=== PATIENT | female | born 1990 | race Caucasian/White ===

== ENCOUNTER → 2018-09-22 16:25 | Outpatient (CLI) | payer OTHER, SELFPAY ==
[2017-12-29 11:28] VITALS: BMI 24.3
[2018-09-25 11:41] LABS: HPV Reflexed? NOT INDICATED
--- OUTSIDE RECORDS SUMMARY | 2018-11-24 22:33 | XMS RPT_ITS ---
:1990 Author Organization OHIP Care Team Providers Name Role Phone Miguelina Perry Attending Unavailable Thomas Wilkinson Attending Unavailable ASSESSMENT, HEALTH RISK Attending Unavailable ASSESSMENT, HEALTH RISK Referring Unavailable Oleghe, Efewongbe Primary Care Unavailable Oleghe Efewongbe Attending Unavailable Oleghe, Efewongbe Referring Unavailable Oleghe, Efewongbe Primary Care Unavailable PROBLEMS PROBLEMS DATE TYPE CONDITION / CODE ATTENDING STATUS SOURCE 09/22/2018 Unknown Z12.4 - Encounter Margot Perry for screening for [facility] malignant neoplasm [facility] of cervix / Repository Z12.4(ICD-10) 09/22/2018 Unknown Z01.419 - Encounter Margot Perry for gynecological [facility] (general) (routine) Repository without abnormal findings / Z01.419(ICD-10) PROCEDURES PROCEDURES No Procedure Records FoundRESULTS RESULTS PAP I-G W/RFX Collected: 09/22/2018 Status: F Source: ANTONIO HRHPV-APTIMA 3:00 PM [facility] REPOSITORY Order Comment: CYTOLOGY INFORMATION: - CLINICAL INFORMATION: - DATE LMP/MENOPAUSE: 09/02/18 LMP - COLLECTION VIAL: Thin Prep Vial - ANNEALER HELPER SOURCE: CERVICAL/ENDOCERVICAL - COLLECTION TECHNIQUE: BRUSH/SPATULA Specimen Comment: [id number] Specimen Comment: Source.............Cervix;Endocervix Specimen Comment: LMP / Prev Treat...[id number] Specimen Comment: No. of containers..01 ThinPrep Vial TYPE CODE TESTS RESULT OUT OF RANGE REFERENCE UNITS LAB L7400.0800 . Normal DIAGN Comment Result Comment: NEGATIVE FOR INTRAEPITHELIAL LESION OR MALIGNANCY. LAB L7400.0900 . Normal ADEQ Comment Result Comment: Satisfactory for evaluation. Endocervical and/or squamous metaplastic cells (endocervical component) are present. LAB L7400.1400 . Normal PERFORM Comment Result Comment: Maribell Medeiros, Enterprise Software Developer (ASCP) LAB L7400.2575 . Normal TEST METHOD Comment Result Comment: This liquid based ThinPrep(R) pap test was screened with the use of an image guided system. LAB L7400.2600 . Normal . COMM LAB L7400.2700 . Normal PAPSMR Comment Result Comment: The Pap smear is a screening test designed to aid in the detection of premalignant and malignant conditions of the uterine cervix. It is not a diagnostic procedure and should not be used as the sole means of detecting cervical cancer. Both false-positive and false-negative reports do occur. LAB L7400.2800 . Normal HPV RFLX Comment Result Comment: The HPV DNA reflex criteria were not met with this specimen result therefore, no HPV testing was performed. Performed at: [facility] [id number] Auxiliary Power Equipment Operator: Laila Ho MD, Phone: [phone] Performed By: #### L7400.0353 #### [facility] (refer to report for specific site) refer to report for address and phone number INTERNAL MEDICINE Observed: 12/30/2017 Status: F Source: ANTONIO OFFICE VISIT 3:19 PM [facility] [address] [place] [id number] OFFICE VISIT Date of Service: 12/29/17 MR#: [id number] Acct: [id number] Name: INOCENCIA ARMSTRONG Rep #: [id number] : 1990 Provider: Tish Valdes MD Age/Sex: 27/F Location: [facility] Status: Signed Intake Vital Signs12/29/17 Height 5 ft 8 in Intake Visit Reasons: EST CARE Chief Complaint: establish care Is patient in pain?: No Allergies No Known Allergies Allergy (Unverified 11/11/17 10:46) Medications norethindrone 1 mg-e. estradiol 20 mcg (24)-iron 75 mg (4) chew tablet PO 84 Days #84 11/11/17 [History Confirmed 11/11/17] Is last menstrual period known: Yes PFSH Medical History Seasonal allergies (Chronic) History of ovarian cyst (Acute) history of eyelid repair (Acute) Surgical History History of unilateral fallopian tube excision (Acute) Family History Sister Deafness Grandmother Thyroid disorder Diabetes Kidney disease Grandfather Brain aneurysm Social History Smoking Status: Never smoker alcohol intake: current alcohol intake frequency: a few times a month Alcohol type: beer substance use type: does not use what type of physical activity do you participate in: walking, weight training frequency: 5-6 times per week HPI HPI Chief Complaint: establish care Details: INOCENCIA ARMSTRONG, is a 27yo F who presents to the office today for an annual physical. She has no acute complaints at this time. ROS Const Constitutional: No weight change, body ache, chills, fatigue, sleep problems, fever(s), change in appetite, snoring, weakness, frequent falls, headache(s) or excessive sweating Eyes Eyes: No change in vision, eye pain, light sensitivity or blurry vision ENT ENT: No headache(s), abnormal hearing, ear pain, tinnitus, nasal congestion, sore throat or neck pain Resp Respiratory: No snoring, cough, shortness of breath or wheezing Cardio Cardiology: No excessive sweating, chest pain at rest, chest pain with exertion, shortness of breath, dyspnea on exertion, palpitations, orthopnea or lightheadedness Gastro GI: No abdominal pain, change in bowel habits, constipation, diarrhea, vomiting, nausea/dyspepsia or cramping Genitourinary-Female: No burning urination, painful urination, urinary incontinence, urinary frequency, abnormal vaginal bleeding, pelvic pain or other Musc Musculoskeletal: No neck pain, abnormal walking, joint pain, back pain, limited range of motion, numbness or tingling Skin Skin: No redness, dry skin, itching, lesions, wounds or rash Neuro Neurology: No weakness, frequent falls, headache(s), abnormal hearing, abnormal walking, numbness, tingling, abnormal speech, dizziness or memory loss Psych Psychiatric: No change in appetite, No memory loss, No depression, No Thoughts of harming yourself/Others Endo Endocrine: No fatigue, excessive sweating, cold intolerance, increased thirst/drinking, heat intolerance, flushing or increased hunger Aller/Imm Allergy/Immunologic: No wheezing, itchy eyes, hives or seasonal allergy symptoms Kory/Lymp Hematologic/Lymphatic: No easy bleeding, easy bruising or enlarged lymph nodes Exam Const General: cooperative, no acute distress, well developed Orientation: alert, awake, oriented x3 HENMT Head: normal to inspection, normocephalic, atraumatic Ears: hearing grossly normal bilaterally Neck Neck: normal visual inspection, no lymphadenopathy Neck mass: No Thyroid: thyroid normal Resp Effort AND Inspection: normal respiratory effort, able to speak in complete sentences Auscultation: Bilateral: Clear to Auscultation Cardio Rate: regular rate Rhythm: regular rhythm Heart Sounds: S1 normal, S2 normal GI Inspection: normal to inspection Palpation: soft, no hepatosplenomegaly Neuro General: awake, alert, oriented x3, CN's II-XI intact bilaterally Extrem General: no clubbing, cyanosis or edema, normal to inspection, full ROM Psych Appearance: grossly normal Mental Status: mental status grossly normal Mood: congruent mood Affect: normal affect Assessment AND Plan 1. Encounter for preventive care Z00.00 Plan Ms. Armstrong is doing well today. Vitals are within normal. Blood work also reviewed, no concerns at this time. Follows up with her environmental education specialist in [facility], last pap smear was within normal. Sleep hygiene discussed. Continue dietary and life style modifications. Follow up in 1 year or as needed. This note was generated with MyNewPlace dictation software. It may contain incorrect words, spelling, and punctuation that were not noted in checking the note before signing. Plan Detail Follow Up 1 Year (or as needed) Coding Level of Care Code Off vis,new,prev 18-39yrs Diagnoses Encounter for preventive care Z00.00 12/30/17 1519 <Electronically signed by Tish Valdes MD> Date Tish Valdes MD Cosigner Signature: Date (if applicable) CC: WILLARD, EMPLOYEE Collected: 12/26/2017 Status: F Source: ANTONIO 7:24 AM [facility] REPOSITORY TYPE CODE TESTS RESULT OUT OF RANGE REFERENCE UNITS LAB L100.1000 4.4-11.0 K/mm3 Normal WBC 4.4 LAB L100.1200 4.2-5.4 M/mm3 Normal RBC 4.48 LAB L100.1300 12.0-15.0 g/dl Normal HGB 13.8 LAB L100.1400 37-47 % Normal HCT 41.3 LAB L100.1500 81-99 fL Normal MCV 92.2 LAB L100.1600 27.0-32.0 pg Normal MCH 30.8 LAB L100.1700 32-36 g/gl Normal MCHC 33.4 LAB L100.1810 11.6-14.6 % Normal RDW CV 13.0 LAB L100.1820 35.1-43.9 fl Normal RDW SD 43.1 LAB L100.1900 150-450 K/mm3 Normal PLT 339 LAB L100.2000 6.2-12.0 fl Normal MPV 8.9 LAB L100.2110 47-70 % Low NEUT% 27.4 LAB L100.2210 19-41 % High LY% 55.2 LAB L100.2310 0-10 % High MONO% 11.3 LAB L100.2410 0-5 % High EO% 5.7 LAB L100.2510 0-1 % Normal BASO% 0.2 LAB L100.2620 2.0-7.7 X10 3/uL Low Absolute Neut 1.2 LAB L100.2720 0.83-4.51 X10 3/ul Normal Absolute Lymph 2.40 Performed By: #### L100.0200 #### [facility] [address] [place], [address] URINALYSIS, EMPLOYEE Collected: 12/26/2017 Status: F Source: ANTONIO 7:24 AM [facility] REPOSITORY TYPE CODE TESTS RESULT OUT OF RANGE REFERENCE UNITS LAB L400.3000 Yellow COLOR Normal Yellow LAB L400.3050 Clear Normal CLARITY Sl. Cloudy LAB L400.3200 Normal mg/dl Normal GLUCOSE, UR Normal LAB L400.3300 Negative mg/dL Normal BILIRUBIN URINE Negative LAB L400.3400 Negative mg/dl Normal KETONE UR Negative LAB L400.3465 1.002-1.030 Normal SP.GR. DIPSTX 1.025 LAB L400.3550 5.0 - 8.0 pH UR Normal 6.0 LAB L400.3600 Negative mg/dl High PROT 30 DIPSTX LAB L400.3700 Normal mg/dl Normal UROBILI Normal LAB L400.3750 Negative Normal NITRITE UR Negative LAB L400.3780 Negative /ul High 10 OCCULT BLOOD-UR LAB L400.3800 Negative /ul LEUK Normal ESTERASE Negative Performed By: #### L400.0100 #### [facility] [address] [place], [address] EMPLOYEE PROFILE Collected: 12/26/2017 Status: F Source: SHANDAKEN 7:24 AM [facility] REPOSITORY TYPE CODE TESTS RESULT OUT OF RANGE REFERENCE UNITS LAB L501.0100 74-106 mg/dL Normal GLU 78 Result Comment: Please note revised GLUCOSE reference range effective 2017. LAB L501.1000 7-18 mg/dL Normal BUN 14 LAB L501.1100 0.55-1.02 mg/dL Normal CREAT,SERUM 0.84 Result Comment: The validity of the calculated GFR AND GFRAA in patients over 70 years has not been determined. Clinical correlation is essential. LAB L501.1110 >60 mL/min Normal EST GFR 87 Result Comment: Non- GFR Calc LAB L501.1115 >60 mL/min Normal EST GFR - AA 106 Result Comment: GFR Calc LAB L501.1300 10-20 RATIO Normal BUN/CRE 16.6 LAB L501.1400 2.6-6.0 mg/dL Normal URIC 3.5 Result Comment: The drugs N-Acetylcysteine and Metamizole may falsely depress this assay. LAB L501.1500 6.4-8.2 g/dL Normal T PROT 7.9 LAB L501.1800 3.2-5.0 g/dL Normal ALB 3.8 LAB L501.1950 2.2-4.2 g/dL Normal GLOB 4.1 LAB L501.2000 0.9-2.4 RATIO Normal A/G 0.9 LAB L501.2200 8.5-10.1 mg/dL Normal CA 8.7 LAB L501.2300 2.5-4.9 mg/dL Normal PHOS 2.8 LAB L501.4100 15-37 U/L Normal AST 23 LAB L501.4305 45-117 U/L Normal ALK P 49 LAB L501.4405 13-56 U/L Normal ALT 22 LAB L501.4600 0.20-1.00 mg/dL Normal T BILI 0.90 LAB L501.4700 0.00-0.30 mg/dL Normal D BILI 0.21 LAB L501.4900 200 mg/dL Normal CHOL 157 Result Comment: <200 mg/dL Desirable 200-240 mg/dL Borderline >240 mg/dL High Risk LAB L501.5000 mg/dL Normal TRIG 63 Result Comment: The drugs N-Acetylcysteine and Metamizole may falsely depress this assay. Serum Triglycerides Reference Interval Normal <150 mg/dL Borderline high 150 - 199 mg/dL High 200 - 499 mg/dL Very High > or = 500 mg/dL LAB L501.5300 136-145 mmol/L Normal NA 141 LAB L501.5600 3.5-5.1 mmol/L Normal K 4.1 LAB L501.5900 98-107 mmol/L Normal CL 107 LAB L501.6100 21.0-32.0 mmol/L Normal CO2 25.0 LAB L501.6200 5-15 Normal 9 GAP LAB L501.6400 mg/dL Normal HDL 66 Result Comment: The drugs N-Acetylcysteine and Metamizole may falsely depress this assay. Reference Range HDL <40 mg/dL Low HDL Cholesterol HDL >or= 60 mg/dL High HDL Cholesterol LAB L501.6475 Normal CHOL:HDL 2.40 LAB L501.6500 0-130 mg/dL Normal LDL 78 LAB L501.6600 5-40 mg/dL Normal VLDL 13 LAB L504.2610 84-246 U/L Normal LDH 170 Performed By: #### L500.2900 #### [facility] [address] [place], [place], [address] NICOTINE URINE DRUG Collected: 12/26/2017 Status: F Source: ANTONIO SCREEN 7:24 AM [facility] REPOSITORY TYPE CODE TESTS RESULT OUT OF RANGE REFERENCE UNITS LAB L505.6250 TO BE Normal CONFIRMED Result Comment: CONFIRMATORY TESTING FOR ALL POSITIVE URINE DRUG SCREEN RESULTS WILL ONLY BE SENT OUT UPON PHYSICIAN ORDER. The results of Urine Drug Screen methods provide only preliminary analytical test results. A more specific alternate chemical method must be used in order to obtain a confirmed analytical result. Gas chromatography/mass spectrometery (GC/MS) is the preferred confirmatory method. Clinical consideration and professional judgement should be applied to any drug of abuse test result, particularly when preliminary positive results are used. LAB L505.6270 <200 ng/mL Normal COT DRG Negative SCREEN Result Comment: Cotinine is the first-stage metabolite of Nicotine. Performed By: #### L505.6240 #### [facility] [address] [place], [place], [address] URGENT CARE VISIT Observed: 11/11/2017 Status: F Source: SHANDAKEN REPORT 11:21 AM [facility] REPOSITORY [facility] [address] [place] [address] [address] [place], [place] [address] OFFICE VISIT Date of Service: 11/11/17 MR#: [id number] Acct: [id number] Name: INOCENCIA ARMSTRONG Rep #: [id number] : 1990 Provider: Thomas GARNER Age/Sex: 27/F Location: [facility] Status: Signed Intake Vital Signs11/11/17 Height 5 ft 9 in 11/11/17 Weight: 150 lb 11/11/17 Body Mass Index (BMI) 22.1 11/11/17 Blood Pressure 122/84 Intake Visit Reasons: SORE THROAT, FEVER Advertising Layout Worker Required: No Is patient in pain?: No Allergies No Known Allergies Allergy (Unverified 11/11/17 10:46) Medications norethindrone 1 mg-e. estradiol 20 mcg (24)-iron 75 mg (4) chew tablet PO 84 Days #84 11/11/17 [History Confirmed 11/11/17] [facility] Medical History History of ovarian cyst (Acute) history of eyelid repair (Acute) Surgical History History of unilateral fallopian tube excision (Acute) Social History Smoking Status: Never smoker alcohol intake: current alcohol intake frequency: a few times a month Alcohol type: beer HPI HPI Details: INOCENCIA ARMSTRONG, is a 27 F who presents to the office today for sore throat and body aches. Patient states that the sore throat started yesterday morning and then developed throughout the day and the body aches started this morning. She does report using Tylenol for the body aches with moderate relief. She has no known ill contacts. She denies fever, chills, sweats. No nausea, vomiting, diarrhea. No other associated symptoms or alleviating/aggravating factors ROS Const Constitutional: Positive for fever(s), body ache, chills and fatigue ENT ENT: Positive for nasal congestion and sore throat; no ear pain or nasal discharge Resp Respiratory: No shortness of breath, hemoptysis, pain with cough or cough Cardio Cardiology: No chest pain at rest or shortness of breath Musc Musculoskeletal: No abnormal walking Neuro Neurology: No abnormal walking or behavioral changes Psych Psychiatric: No behavioral changes, No mood swings Endo Endocrine: Positive for fatigue Exam Const General: cooperative, no acute distress HENMT Head: normocephalic, atraumatic Ears: hearing grossly normal bilaterally, TM's normal bilaterally, EAC's normal Nose: external nose normal Face and sinus: normal facial exam Mouth: oral mucosae normal Throat: posterior oropharynx abnormal erythema; Negative for no exudates Resp Effort AND Inspection: normal respiratory effort, symmetric chest movement Auscultation: Bilateral: Clear to Auscultation Cardio Palpation: normal PMI Rate: regular rate Rhythm: regular rhythm Heart Sounds: S1 normal, S2 normal Neuro General: alert, oriented x3, CN's II-XI intact bilaterally Psych Appearance: grossly normal Mental Status: mental status grossly normal Mood: congruent mood Assessment AND Plan Problems 1. Acute pharyngitis, unspecified etiology J02.9 Status Acute Plan Negative rapid strep and flu in the office today. Strep swab will be sent off for culture. Encouraged to get plenty of rest, drink lots of clear liquids, and use Tylenol or Ibuprofen (unless contraindicated) for fever and comfort. Patient also educated on other symptomatic management techniques. To be seen in 7-10 days if no improvement; sooner if worsening of symptoms. Patient advised of potential red flags when appropriate report to the ED. Patient verbalized understanding of all the above. This note was generated with ioBridgeation software. It may contain incorrect words, spelling, and punctuation that were not noted in checking the note before signing. Coding Level of Care Code Off vis,new,level 3 Diagnoses Acute pharyngitis, unspecified etiology J02.9 Pharyngitis/tonsillitis etiology: unspecified etiology 11/11/17 1121 <Electronically signed by Thomas GARNER> Date Thomas GARNER Cosigner Signature: Date (if applicable) CC: ALLERGIES ALLERGIES DATE TYPE / CODE NAME / CODE REACTION SEVERITY SOURCE 11/11/2017 Drug No Known Unknown [facility] Allergy/4160 Allergies/F00 [facility] [address](SNOMED [id number](RXNOR Repository CT) M) ENCOUNTERS ENCOUNTERS ADMIT/DISCHARGE ACCOUNT ADMITTING ENCOUNTER LOCATION SOURCE NUMBER CLASS 09/22/2018 [id number] Ambulatory [place] [facility] ing:[facility] Repository 12/29/2017/ [id number] Ambulatory BMSBuilding:B [place] [address] [facility] Repository 12/26/2017 [id number] Ambulatory [place] 3 [facility] ing:EMPH Repository 11/11/2017/ [id number] Ambulatory BMSBuilding:B [place] 8 8 [facility] Repository PAYERS PAYERS ENCOUNTER GUARANTOR PAYER SUBSCRIBER SOURCE 09/22/2018 INOCENCIA Primary Insurance:[facility] INOCENCIA COLVINOB: [place] [id number] [facility] [id number] [address]Yqo: (440) Number: Repository [phone] () [id number] Date:[id number] [address] [address], [place] [address]QE: CHECK WEBSITE 09/22/2018 Secondary NOT GIVENUNK [place] Insurance:SELF PAY [facility] Number: Effective Repository Date:2018-09-22 12/29/2017 INOCENCIA Primary TOYA COLVINOB: [place] [id number] SR Insurance:MEDICAL [id number] [address] [address]Yfa: Number: Repository [phone] [id number] (HP) Date:[id number] [address] [place] [id number]: 12/29/2017 Secondary NOT GIVENUNK [place] Insurance:SELF PAY [facility] Number: Effective Repository Date:2017-12-22 12/26/2017 INOCENCIA Primary NOT GIVENUNK Antonioannalisa [id number] SR Insurance:SELF PAY [address] [address]Yuo: Number: Effective Repository [phone] Date:2017-12-26 () 11/11/2017 INOCENCIA Primary TOAY COLVINOB: [place] [id number] SR Insurance:MEDICAL [id number] [address] [address]Ysq: Number: Repository [phone] [id number] () Date:[id number] [address] [place] [id number]: 11/11/2017 Secondary NOT GIVENUNK [place] Insurance:SELF PAY [facility] Number: Effective Repository Date:2017-11-11
== END ==
PROVIDERS: Visit Provider Obstetrics & Gynecology
DX: Z12.4 Encounter for screening for malignant neoplasm of cervix (principal)
CPT/HCPCS: 87624; 88175; G0145

== ENCOUNTER → 2020-02-11 | Outpatient (CLI) | payer OTHER, SELFPAY ==
[2019-04-05 09:47] VITALS: BMI 24.3
[2020-02-11 11:04] LABS: Mucous, Urine 0 SEEN /hpf (<or=2+); Red Blood Cells-Urine 0 SEEN /hpf (0-5)
[2020-02-11 13:59] LABS: Color, Urine Yellow (Yellow); Glucose, Dipstick Normal (Normal); Ketone-Dipstick Negative (Negative); Leukocyte Esterase-Dipstick 100 /ul (Negative); Nitrite-Dipstick Negative (Negative); Occult Blood-Urine Negative /ul (Negative); Protein-Dipstick Negative (Negative); Specific Gravity, Urine 1.015 (1.002-1.030); Urine Bilirubin Dipstick Negative (Negative); Urine Clarity Clear (Clear); Urine Urobilinogen Normal (Normal)
[2020-02-11 14:18] LABS: Bacteria 2+ /hpf (None Seen); Squamous Epithelial Cells - UA 0-5 SEEN /hpf (5-10); White Blood Cells 5-10 SEEN /hpf (0-5)
== END | disposition home or self-care (01) ==
PROVIDERS: PCP Internal Medicine; Visit Provider Obstetrics & Gynecology
DX: N39.0 Urinary tract infection, site not specified (principal)
CPT/HCPCS: 81001; 87077; 87086; 87088; 87186

== ENCOUNTER 2020-05-17 17:23 | Outpatient (RCR) | payer OTHER, SELFPAY ==
[2020-03-27 11:32] VITALS: BMI 24.3
== END 2020-05-31 23:59 ==
LOC: EMPH 17:23
PROVIDERS: PCP Internal Medicine; Visit Provider Family Medicine Geriatric Medicine
DX: Z11.59 Encounter for screening for other viral diseases (principal)
CPT/HCPCS: 87635; U0003

== ENCOUNTER → 2020-06-07 | Outpatient (CLI) | payer OTHER, SELFPAY ==
[2020-06-07 07:09] VITALS: BMI 24.3
[2020-06-07 10:14] LABS: Mucous, Urine 0 SEEN /hpf (<or=2+)
[2020-06-07 10:22] LABS: Color, Urine Yellow (Yellow); Glucose, Dipstick Normal (Normal); Ketone-Dipstick Negative (Negative); Leukocyte Esterase-Dipstick 500 /ul (Negative); Nitrite-Dipstick Negative (Negative); Occult Blood-Urine 150 /ul (Negative); Protein-Dipstick 30 mg/dl (Negative); Urine Bilirubin Dipstick Negative (Negative); Urine Clarity Cloudy (Clear); Urine Urobilinogen Normal (Normal)
[2020-06-07 10:30] LABS: Bacteria RARE /hpf (None Seen); Red Blood Cells-Urine 5-10 SEEN /hpf (0-5); Squamous Epithelial Cells - UA 0-5 SEEN /hpf (5-10); White Blood Cells 25-50 SEEN /hpf (0-5)
== END | disposition home or self-care (01) ==
LOC: LABSPEC 10:09
PROVIDERS: PCP Internal Medicine; Referring Provider Physician Assistant; Visit Provider Physician Assistant
DX: R35.0 Frequency of micturition (principal); R30.0 Dysuria
CPT/HCPCS: 81001; 87086

== ENCOUNTER → 2020-06-28 08:27 | Outpatient (CLI) | payer OTHER, SELFPAY ==
[2020-06-07 07:09] VITALS: BMI 24.3
[2020-06-28 10:26] LABS: Absolute Lymphocyte Count 2.15 X10^3/uL (0.83-4.51); Basophil# 0.02 X10^3/uL; Basophil% 0.4 % (0-1); Eosinophil# 0.21 X10^3/uL; Eosinophils% 4.2 % (0-5); Hematocrit 41.7 % (37-47); Hemoglobin 13.1 g/dL (12.0-15.0); Lymphocyte # 2.15 X10^3/ul (4.0); Lymphocyte % 42.7 % (19-41); Mean Corp Hgb Conc 31.4 g/dL (32-36); Mean Corpuscular Hgb 27.8 pg (27.0-32.0); Mean Corpuscular Volume 88.5 fL (81-99); Monocyte# 0.64 X10^3/uL; Monocyte% 12.7 % (0-10); NRBC Flagged by Analyzer 0 % (0-5); Neutrophil # 2.01 X10^3/uL (2.7-7.7); Platelet Count 346 K/mm3 (150-450); RBC Distribution Width SD 52.7 fl (35.1-43.9); Red Blood Count 4.71 M/mm3 (4.2-5.4)
== END ==
PROVIDERS: PCP Internal Medicine; Referring Provider Internal Medicine; Visit Provider Internal Medicine
DX: D64.9 Anemia, unspecified (principal)
CPT/HCPCS: 36415; 85025

== ENCOUNTER → 2021-03-26 14:17 | Outpatient (CLI) | payer OTHER, SELFPAY ==
[2021-03-26 13:56] VITALS: BMI 26.7
[2021-03-26 15:40] LABS: T4 Free Direct 0.99 ng/dL (0.76-1.46); Thyroid Stim Hormone (TSH) 0.88 uIU/mL (0.358-3.74)
== END ==
PROVIDERS: PCP Internal Medicine; Referring Provider Internal Medicine; Visit Provider Internal Medicine
DX: E66.3 Overweight (principal)
CPT/HCPCS: 36415; 84439; 84443

== ENCOUNTER → 2022-04-08 | Outpatient (CLI) | payer OTHER, SELFPAY ==
[2022-04-11 16:27] LABS: HPV Reflexed? NOT INDICATED
== END | disposition home or self-care (01) ==
LOC: LABSPEC 16:46
PROVIDERS: PCP Internal Medicine; Visit Provider Nurse Practitioner Women's Health
DX: Z12.4 Encounter for screening for malignant neoplasm of cervix (principal)
CPT/HCPCS: 88175; G0145

== ENCOUNTER → 2022-07-18 | Outpatient (CLI) | payer OTHER, SELFPAY ==
[2022-07-18 13:30] LABS: Amphetamine Urine VISTA NEGATIVE (<1000 ng/mL); Barbiturate Urine VISTA NEGATIVE (< 200 ng/mL); Benzodiazepine Urine VISTA NEGATIVE (< 200 ng/mL); Cocaine Urine VISTA NEGATIVE (< 300 ng/mL); Ecstacy Urine VISTA NEGATIVE (< 500 ng/mL); Methadone Urine VISTA NEGATIVE (< 300 ng/mL); PCP Urine VISTA NEGATIVE (< 25 ng/mL); THC Urine VISTA NEGATIVE (< 50 ng/mL); Vista UDS pH Range 7
[2022-07-22 22:06] LABS: Chlamydia By Nucleic Acid AMP Negative (Negative)
[2022-07-23 12:41] LABS: Gonococcus By Nucleic Acid AMP Negative (Negative)
== END | disposition home or self-care (01) ==
PROVIDERS: PCP Internal Medicine; Visit Provider Obstetrics & Gynecology
DX: O09.90 Supervision of high risk pregnancy, unspecified, unspecified trimester (principal)
CPT/HCPCS: 80307; 87086; 87088; 87491; 87591

== ENCOUNTER → 2022-07-31 | Outpatient (CLI) | payer OTHER, SELFPAY ==
[2022-07-31 08:00] LABS: Absolute Neutrophil Count 2.7 X10^3/uL (2.0-7.7); Basophil# 0.01 X10^3/uL; Basophil% 0.2 % (0-1); Eosinophil# 0.21 X10^3/uL; Eosinophils% 3.6 % (0-5); Hematocrit 41.2 % (37-47); Hemoglobin 14.1 g/dL (12.0-15.0); Lymphocyte % 41.4 % (19-41); Mean Corp Hgb Conc 34.2 g/dL (32-36); Mean Corpuscular Hgb 31.7 pg (27.0-32.0); Mean Corpuscular Volume 92.6 fL (81-99); Mean Platelet Vol. 8.5 fl (6.2-12.0); Monocyte# 0.48 X10^3/uL; Monocyte% 8.3 % (0-10); NRBC Flagged by Analyzer 0 % (0-5); Neutrophil # 2.68 X10^3/uL (2.7-7.7); Neutrophil % 46.2 % (47-70); Platelet Count 306 K/mm3 (150-450); RBC Distribution Width CV 12.6 % (11.6-14.6); RBC Distribution Width SD 42.9 fl (35.1-43.9); Red Blood Count 4.45 M/mm3 (4.2-5.4); White Blood Count 5.8 K/mm3 (4.4-11.0)
[2022-07-31 08:44] LABS: NATERA MAILED SPECIMEN
[2022-07-31 09:24] LABS: HIV - WCH Non-Reactive (Nonreactive); Hepatitis B Surface Antigen Non-Reactive (Nonreactive); Hepatitis C Antibody Non-Reactive (Nonreactive); Rubella IgG Reactive (Nonreactive); Syphilis Antibodies Non-reactive
== END | disposition home or self-care (01) ==
LOC: LAB 07:38
PROVIDERS: PCP Internal Medicine; Visit Provider Obstetrics & Gynecology
DX: O09.90 Supervision of high risk pregnancy, unspecified, unspecified trimester (principal)
CPT/HCPCS: 36415; 85025; 86703; 86762; 86780; 86803; 86850; 86900; 86901; 87340

== ENCOUNTER → 2022-09-03 | Outpatient (CLI) | payer OTHER, SELFPAY | END | disposition home or self-care (01) | LOC: LABSPEC 17:04 | PROVIDERS: PCP Internal Medicine; Referring Provider Obstetrics & Gynecology; Visit Provider Obstetrics & Gynecology | DX: R30.0 Dysuria (principal) | CPT/HCPCS: 87086; 87088 ==

== ENCOUNTER → 2022-09-25 | Outpatient (CLI) | payer OTHER, SELFPAY ==
--- NOTE | 2022-09-25 08:01 | US_ITS ---
STUDY: SECOND AND THIRD TRIMESTER OBSTETRICAL ULTRASOUND REASON FOR EXAM: Female, 32 years old anatomy LMP: 05/15/2022 TECHNIQUE: Transabdominal and Transvaginal TECHNICAL QUALITY: Adequate. PRIOR ULTRASOUND: None. FINDINGS: There is a single intrauterine fetus. The fetus is in a variable presentation. There is demonstrated cardiac activity with a heart rate of 137 bpm. There is a normal amniotic fluid volume. The largest amniotic fluid pocket measures 7.2 cm x 3.7 cm. The amniotic fluid index (VERONICA) is within normal limits. The placenta is anterior in location and is not low lying. There are Grade 0 placental changes. The cervix measures 4.7 cm in length. The bilateral adnexal regions are normal. BIOMETRY: BPD: 4.5 cm: 19 weeks, 4 days HC: 17.42 cm: 20 weeks, 0 days AC: 15.52 cm: 20 weeks, 5 days FL: 3 cm: 19 weeks, 2 days CI: 75% FL/BPD: 67% FL/HC: FL/AC: 19% HC/AC: 1.12 age by current US: 19 weeks, 5 days. NATE by current US: 02/14/2023. Estimated weight: 327 grams, +/- 49 grams, 93 %. Age by LMP: 19 weeks, 0 days. NATE by LMP: 02/19/2023. ANATOMY: Gender: Male Cranium: Normal lateral ventricles. Normal choroid plexus. Normal cerebellum. Normal cisterna magna. Normal face, nose and lips. Chest: Normal 4-chamber heart. Abdomen/Pelvis: Normal diaphragm. Normal stomach. Normal abdominal wall. Normal cord insertion. Normal 3 vessel cord. Normal kidneys. Normal bladder. Spine: Normal cervical spine. Normal thoracic spine. Normal lumbar spine. Normal sacrum. Extremities: Normal bilateral upper extremities. Normal bilateral lower extremities. IMPRESSION: Single live intrauterine gestation with a mean gestational age of 19 weeks and 5 days. Electronically Signed: Bebeto Allen MD at 12:15 EST , STUDY: FIRST TRIMESTER OBSTETRICAL ULTRASOUND REASON FOR EXAM: Female, 32 years old. Cervical length measurement. LMP: 05/15/2022 TECHNIQUE: Transvaginal TECHNICAL QUALITY: Adequate. PRIOR ULTRASOUND: None. FINDINGS: Cervical length measures 4.7 cm. US/OB Anatomy Scan IMPRESSION: The cervical length measures 4.7 cm. Electronically Signed: Bebeto Allen MD at 12:16 EST ,
== END | disposition home or self-care (01) ==
LOC: OPUS 08:00
PROVIDERS: PCP Internal Medicine; Visit Provider Obstetrics & Gynecology
DX: O09.90 Supervision of high risk pregnancy, unspecified, unspecified trimester (principal); Z3A.19 19 weeks gestation of pregnancy
CPT/HCPCS: 76805; 76817

== ENCOUNTER → 2022-11-14 | Outpatient (CLI) | payer OTHER, SELFPAY ==
[2022-11-14 09:32] LABS: Absolute Lymphocyte Count 1.97 X10^3/uL (0.83-4.51); Absolute Neutrophil Count 4.5 X10^3/uL (2.0-7.7); Basophil# 0.02 X10^3/uL; Basophil% 0.3 % (0-1); Eosinophil# 0.09 X10^3/uL; Eosinophils% 1.3 % (0-5); Hematocrit 38.1 % (37-47); Hemoglobin 12.5 g/dL (12.0-15.0); Lymphocyte # 1.97 X10^3/ul (0.83-4.51); Lymphocyte % 27.8 % (19-41); Mean Corp Hgb Conc 32.8 g/dL (32-36); Mean Corpuscular Hgb 32.1 pg (27.0-32.0); Mean Corpuscular Volume 97.9 fL (81-99); Mean Platelet Vol. 9.2 fl (6.2-12.0); Monocyte# 0.52 X10^3/uL; Monocyte% 7.3 % (0-10); NRBC Flagged by Analyzer 0 % (0-5); Neutrophil # 4.46 X10^3/uL (2.7-7.7); Neutrophil % 62.9 % (47-70); Platelet Count 257 K/mm3 (150-450); RBC Distribution Width CV 13.2 % (11.6-14.6); RBC Distribution Width SD 47.4 fl (35.1-43.9); Red Blood Count 3.89 M/mm3 (4.2-5.4); White Blood Count 7.1 K/mm3 (4.4-11.0)
[2022-11-14 09:52] LABS: Glucose Challenge Gest 1H 50g 88 mg/dL (70-140)
[2022-11-14 10:24] LABS: HIV - WCH Non-Reactive (Nonreactive); Syphilis Antibodies Non-reactive
== END | disposition home or self-care (01) ==
LOC: LAB 08:35
PROVIDERS: PCP Internal Medicine; Referring Provider Registered Nurse; Visit Provider Registered Nurse
DX: O09.90 Supervision of high risk pregnancy, unspecified, unspecified trimester (principal); Z3A.16 16 weeks gestation of pregnancy
CPT/HCPCS: 36415; 82950; 85025; 86703; 86780

== ENCOUNTER → 2023-01-28 | Outpatient (CLI) | payer OTHER, SELFPAY | END | disposition home or self-care (01) | LOC: LABSPEC 10:15 | PROVIDERS: PCP Internal Medicine; Referring Provider Obstetrics & Gynecology; Visit Provider Obstetrics & Gynecology | DX: O09.90 Supervision of high risk pregnancy, unspecified, unspecified trimester (principal) | CPT/HCPCS: 87081 ==

== ENCOUNTER 2023-02-14 10:20 | Inpatient (IN) | payer OTHER, SELFPAY ==
[2023-02-14] VITALS (47 sets, daily range): BP systolic 103–150; BP diastolic 58–85; PULSE 64–164; RESP 16–18; TEMP 35.6–36.7; O2SAT 80–100; BMI 33.9
[2023-02-14 02:09] LABS: ROM Internal Control Test YES-OK TO RESULT pt. (Internal QC); ROM Patient Test Negative (Negative); Record Kit Lot#, ROM+ K1374
--- NOTE | 2023-02-14 07:43 | OB.TRI.NOTE ---
HPI - General HPI Narrative INOCENCIA CORRIGAN, is a 32 y/o @ 39 weeks 2 days who presents to L&D at around 2 am today after having intercourse and experiencing fluid loss and contractions. ROM plus was negative and contractions were found to be irregular. Her cervix was unchanged for several hours but patient was hesitant to go home. Maternal Data Information NATE Calculator Estimated Delivery Date Method Current WG Current Estimate 02/19/23 LMP (Certain) 39w 2d Other Estimates 02/14/23 Ultrasound #1 40w 0d PFSH PFS Medical History history of eyelid repair History of ovarian cyst Seasonal allergies Home Medications prenat.vits,bhavesh,okk-spwi-netav 1 tab PO DAILY Check with primary doctor 03/27/20 [History Last Taken Unknown] docusate sodium 100 mg capsule (Colace) 100 mg PO DAILY Check with primary doctor 08/14/22 [History Last Taken Unknown] famotidine 20 mg tablet (Pepcid) 20 mg PO DAILY Check with primary doctor 10/09/22 [History Last Taken Unknown] metoclopramide HCl 5 mg tablet (Reglan) 5 mg PO QAC PRN nausea and vomiting #30 tabs 02/05/23 [Rx Last Taken Unknown] Allergy/AdvReac Type Severity Reaction Status Date / Time No Known Allergies Allergy Verified 02/14/23 02:06 Family History Sister Deafness Cleft lip and cleft palate Grandmother Thyroid disorder Diabetes Kidney disease Brain aneurysm Father Advanced cirrhosis of liver Surgical History History of unilateral fallopian tube excision Social History adopted: No household members: spouse housing: house current occupational status: employed 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 current occupational exposures/hazards: No pets and animals: Yes pets and animals: dog(s) history of recent travel: Yes ([place]) out of state: Yes out of country: No sexually active: Yes Smoking Status: Never smoker alcohol intake: former details: socially prior to substance use type: does not use well-balanced diet: daily or most days caffeine: No eating out: 1-3 times/week during the past year weight has: remained stable what type of physical activity do you participate in: walking and running frequency: daily duration: 30-45 minutes/day tramaine/lutheran: Religious seatbelt use: always do you feel safe at home: Yes additional 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: - 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 [employer] History 1 Elective abortions Hx Para 0 Spontaneous abortions Hx # Term Pregnancies Ectopic pregnancies Hx # Pregnancies Multiple births # of living children Visit Details Expected Delivery Route/Plan Labor Preferences- CB/BF classes: Just breathe labor support person: Jere labor intervention preferences: [] pain management options preferred: limited but not opposed to epidural cut cord/dad catch: cord : yes PP control planned: discussed discussed possible routes of delivery and associated risks: [] special requests: [] Plans Covid status: vaccinated Flu vaccine: vaccinated Tdap vaccine: given Rhogam: NA LARC form signed: yes movement and labor precautions reviewed. Problem list reviewed and updated with the most current plan of care details and appropriate orders placed. Relevant counseling for the gestational age provided. Continue routine care and follow up unless otherwise noted in visit notes/problem list details OB Flowsheet Initial Weight: Not Recorded Date <del>?</del> EGA Weight BP Urine Prot <del>?</del> Glucose FHR FuHt Pres Dilation <del>?</del> Effaced St Visit Note 07/18/22 <del>?</del> 9w 1d 191 lb 135/89 <del>?</del> 169 <del>?</del> JV-single live IUP present measuring 9 weeks 5 days. within appropriate measurement that is consistent with LMP. NATE 02/19/22. 08/14/22 <del>?</del> 13w 0d 194 lb 4 oz 127/89 Negative <del>?</del> Negative 150 <del>?</del> JV- normal carrier screen. no complaints other than indigestion and a cold. sister has VACTERL/VATER . will need to let MFM know at anatomy scan so can be offered Echo. 09/03/22 <del>?</del> 15w 6d 199 lb 2 oz 130/80 Negative <del>?</del> Negative <del>?</del> SM- no vb lof good fm no regular ctx here for uti symptoms 09/09/22 <del>?</del> 16w 5d 199 lb 4 oz 137/85 Negative <del>?</del> Negative 153 <del>?</del> LC- doing well. no vb/cramping. discussed and declines afp. has MFM anatomy scheduled. 10/09/22 <del>?</del> 21w 0d 202 lb 135/92 Negative <del>?</del> Negative 150 20 <del>?</del> LC- doing well. bleeding mole- derm consult ordered. mfm consult for sister with VATPATRICK. LC- doing well. bleeding mole- derm consult ordered. mfm consult for sister with VATERS, EFW 93% on anatomy. 11/05/22 <del>?</del> 24w 6d 209 lb 111/73 Negative <del>?</del> Negative 150 <del>?</del> JV- no lof, vaginal bleeding, or dec fm. Pt has a echo scheduled. gct ordered 11/26/22 <del>?</del> 27w 6d 210 lb 8 oz 110/72 Negative <del>?</del> Negative 137 26 <del>?</del> MH-No VB, LOF. Good FM. Larc. 12/10/22 <del>?</del> 29w 6d 213 lb 2 oz 113/76 Negative <del>?</del> Negative 135 31 <del>?</del> SM- no vb lof good fm no regular ctx 12/24/22 <del>?</del> 31w 6d 216 lb 4 oz 111/77 Negative <del>?</del> Negative 135 33 <del>?</del> KW- no lof/vb/ctx. +FM. no concerns. doing just breathe class tomorrow. 01/08/23 <del>?</del> 34w 0d 219 lb 2 oz 140/85 118/84 <del>?</del> 140 34 <del>?</del> LC- no lof/vb/ctx. good fm. plan reviewed. 01/21/23 <del>?</del> 35w 6d 223 lb 2 oz 122/68 Negative <del>?</del> Negative 145 36 <del>?</del> SM- no vb lof good fm no regualr ctx 01/28/23 <del>?</del> 36w 6d 225 lb 4 oz 123/78 <del>?</del> 140 37 Cephalic 2.5 <del>?</del> 70 -2 SM- no vb lof good f no regular ctx 02/05/23 <del>?</del> 38w 0d 228 lb 4 oz 133/87 Negative <del>?</del> Negative 145 38 Cephalic 3.5 <del>?</del> 70 -2 JV- no lof, vaginal bleeding, or dec fm. labor precautions discussed. 02/12/23 <del>?</del> 39w 0d 232 lb 121/81 <del>?</del> 140 39 Cephalic 4.5 <del>?</del> 90 -1 JV- no lof ,vaginal bleeding, or dec fm. labor precautions discussed. ROS Constitutional Constitutional: Reports systems reviewed and no addt'l complaints, except as documented Gastrointestinal Gastrointestinal: Denies bloating, constipation, cramping, diarrhea, nausea or vomiting Genitourinary Genitourinary: Reports other Details: Denies vaginal odor, vaginal bleeding, or vaginal discharge ; Denies difficulty urinating or flank pain Physical Exam HEENT normocephalic Resp normal respiratory effort and normal air movement no CVA tenderness Extremity normal to inspection General Extremity: edema bilateral (trace ) NST FHR Rate Baby A Baseline: 140 Variability:: Moderate Accelerations:: 15 x 15 Decelerations:: None NST Reactive:: Yes FHR Category:: Category I Assessment & Plan (1) False labor after 37 completed weeks of gestation: (2) Anxiety: COMMENT: sees therapist/stable (3) Abnormal ultrasound: COMMENT: Normal follow up US of rectum and normal echo. previously seen on anatomy scan. (4) Family history of VATER complex: COMMENT: MFM Normal 24 week echo. sister with VACTERL/VATER (5) Supervision of high risk , antepartum: COMMENT: PRR , NATE 02/19/22, boy Jere (6) : QUALIFIERS: Weeks of gestation: 39 weeks Qualified Code(s): Z3A.39 - 39 weeks gestation of COMMENT: GBS neg, NIPT low risk, carrier testing neg. , nl anatomy Dilated rectum- nl on repeat Charges/Coding Multi Select Codes Visit Charges Office Visit/Consults: 91767 OV L3 Est Urinary/Genital Urinary/Genital CPT Codes: 46977-31 non-stress test Interp
[2023-02-14] MEDS: Lactated Ringers 1,000 ML 200 ML IV (10:45)
[2023-02-14 10:58] LABS: Absolute Lymphocyte Count 2.05 X10^3/uL (0.83-4.51); Absolute Neutrophil Count 6.2 X10^3/uL (2.0-7.7); Basophil# 0.02 X10^3/uL; Basophil% 0.2 % (0-1); Eosinophil# 0.04 X10^3/uL; Eosinophils% 0.4 % (0-5); Hematocrit 39.8 % (37-47); Hemoglobin 12.9 g/dL (12.0-15.0); Lymphocyte # 2.05 X10^3/ul (0.83-4.51); Lymphocyte % 22.7 % (19-41); Mean Corp Hgb Conc 32.4 g/dL (32-36); Mean Corpuscular Hgb 31.1 pg (27.0-32.0); Mean Corpuscular Volume 95.9 fL (81-99); Mean Platelet Vol. 9.6 fl (6.2-12.0); Monocyte# 0.67 X10^3/uL; Monocyte% 7.4 % (0-10); NRBC Flagged by Analyzer 0 % (0-5); Neutrophil # 6.22 X10^3/uL (2.7-7.7); Neutrophil % 68.9 % (47-70); Platelet Count 287 K/mm3 (150-450); RBC Distribution Width SD 45.2 fl (35.1-43.9); Red Blood Count 4.15 M/mm3 (4.2-5.4)
[2023-02-14] MEDS: LACTATED RINGERS 500 ML 999 ML IV (11:16)
[2023-02-14 11:43] LABS: Syphilis Antibodies Non-reactive
--- NOTE | 2023-02-14 12:18 | PCM.HP.OB ---
HPI - General General Date of Admission: 02/14/23 HPI Narrative INOCENCIA CORRIGAN, is a 32 y/o @ 39 weeks 2 day who presents to L&D in early labor then staulled out at /1 station. She is being admitted for augmentation and living far from the hosptial. Maternal Data Information NATE Calculator Estimated Delivery Date Method Current WG Current Estimate 02/19/23 LMP (Certain) 39w 2d Other Estimates 02/14/23 Ultrasound #1 40w 0d [facility] Medical History history of eyelid repair History of ovarian cyst Seasonal allergies Home Medications prenat.vits,bhavesh,fxr-ytty-rghak 1 tab PO DAILY Check with primary doctor 03/27/20 [History Last Taken Unknown] docusate sodium 100 mg capsule (Colace) 100 mg PO DAILY Check with primary doctor 08/14/22 [History Last Taken Unknown] famotidine 20 mg tablet (Pepcid) 20 mg PO DAILY Check with primary doctor 10/09/22 [History Last Taken Unknown] metoclopramide HCl 5 mg tablet (Reglan) 5 mg PO QAC PRN nausea and vomiting #30 tabs 02/05/23 [Rx Last Taken Unknown] Allergy/AdvReac Type Severity Reaction Status Date / Time No Known Allergies Allergy Verified 02/14/23 02:06 Family History Sister Deafness Cleft lip and cleft palate Grandmother Thyroid disorder Diabetes Kidney disease Brain aneurysm Father Advanced cirrhosis of liver Surgical History History of unilateral fallopian tube excision Social History adopted: No household members: spouse housing: house current occupational status: employed 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 current occupational exposures/hazards: No pets and animals: Yes pets and animals: dog(s) history of recent travel: Yes ([place]) out of state: Yes out of country: No sexually active: Yes Smoking Status: Never smoker alcohol intake: former details: socially prior to substance use type: does not use well-balanced diet: daily or most days caffeine: No eating out: 1-3 times/week during the past year weight has: remained stable what type of physical activity do you participate in: walking and running frequency: daily duration: 30-45 minutes/day tramaine/presybeterian: Scientologist seatbelt use: always do you feel safe at home: Yes 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 [employer] History 1 Elective abortions Hx Para 0 Spontaneous abortions Hx # Term Pregnancies Ectopic pregnancies Hx # Pregnancies Multiple births # of living children Visit Details Expected Delivery Route/Plan Labor Preferences- CB/BF classes: Just breathe labor support person: Jere labor intervention preferences: [] pain management options preferred: limited but not opposed to epidural cut cord/dad catch: cord : yes PP control planned: discussed discussed possible routes of delivery and associated risks: [] special requests: [] Plans Covid status: vaccinated Flu vaccine: vaccinated Tdap vaccine: given Rhogam: NA LARC form signed: yes movement and labor precautions reviewed. Problem list reviewed and updated with the most current plan of care details and appropriate orders placed. Relevant counseling for the gestational age provided. Continue routine care and follow up unless otherwise noted in visit notes/problem list details OB Flowsheet Initial Weight: Not Recorded Date <del>?</del> EGA Weight BP Urine Prot <del>?</del> Glucose FHR FuHt Pres Dilation <del>?</del> Effaced St Visit Note 07/18/22 <del>?</del> 9w 1d 191 lb 135/89 <del>?</del> 169 <del>?</del> JV-single live IUP present measuring 9 weeks 5 days. within appropriate measurement that is consistent with LMP. NATE 02/19/22. 08/14/22 <del>?</del> 13w 0d 194 lb 4 oz 127/89 Negative <del>?</del> Negative 150 <del>?</del> JV- normal carrier screen. no complaints other than indigestion and a cold. sister has VACTERL/VATER . will need to let MFM know at anatomy scan so can be offered Echo. 09/03/22 <del>?</del> 15w 6d 199 lb 2 oz 130/80 Negative <del>?</del> Negative <del>?</del> SM- no vb lof good fm no regular ctx here for uti symptoms 09/09/22 <del>?</del> 16w 5d 199 lb 4 oz 137/85 Negative <del>?</del> Negative 153 <del>?</del> LC- doing well. no vb/cramping. discussed and declines afp. has MFM anatomy scheduled. 10/09/22 <del>?</del> 21w 0d 202 lb 135/92 Negative <del>?</del> Negative 150 20 <del>?</del> LC- doing well. bleeding mole- derm consult ordered. mfm consult for sister with SUKHDEEP. LC- doing well. bleeding mole- derm consult ordered. mfm consult for sister with VATERS, EFW 93% on anatomy. 11/05/22 <del>?</del> 24w 6d 209 lb 111/73 Negative <del>?</del> Negative 150 <del>?</del> JV- no lof, vaginal bleeding, or dec fm. Pt has a echo scheduled. gct ordered 11/26/22 <del>?</del> 27w 6d 210 lb 8 oz 110/72 Negative <del>?</del> Negative 137 26 <del>?</del> MH-No VB, LOF. Good FM. Larc. 12/10/22 <del>?</del> 29w 6d 213 lb 2 oz 113/76 Negative <del>?</del> Negative 135 31 <del>?</del> SM- no vb lof good fm no regular ctx 12/24/22 <del>?</del> 31w 6d 216 lb 4 oz 111/77 Negative <del>?</del> Negative 135 33 <del>?</del> KW- no lof/vb/ctx. +FM. no concerns. doing just breathe class tomorrow. 01/08/23 <del>?</del> 34w 0d 219 lb 2 oz 140/85 118/84 <del>?</del> 140 34 <del>?</del> LC- no lof/vb/ctx. good fm. plan reviewed. 01/21/23 <del>?</del> 35w 6d 223 lb 2 oz 122/68 Negative <del>?</del> Negative 145 36 <del>?</del> SM- no vb lof good fm no regualr ctx 01/28/23 <del>?</del> 36w 6d 225 lb 4 oz 123/78 <del>?</del> 140 37 Cephalic 2.5 <del>?</del> 70 -2 SM- no vb lof good f no regular ctx 02/05/23 <del>?</del> 38w 0d 228 lb 4 oz 133/87 Negative <del>?</del> Negative 145 38 Cephalic 3.5 <del>?</del> 70 -2 JV- no lof, vaginal bleeding, or dec fm. labor precautions discussed. 02/12/23 <del>?</del> 39w 0d 232 lb 121/81 <del>?</del> 140 39 Cephalic 4.5 <del>?</del> 90 -1 JV- no lof ,vaginal bleeding, or dec fm. labor precautions discussed. ROS Constitutional Constitutional: Denies change in weight, fatigue, fever(s), headache(s), poor appetite or weakness Eyes Eyes: Denies blurry vision, change in vision, seeing flashes or spots in vision ENT HEENT: Denies dizziness, headache(s), loss taste/smell or sore throat Cardiovascular Cardiovascular: Denies chest pain, dizziness, dyspnea, irregular heart rhythm, leg edema, palpitations, rapid heart rate or vomiting Respiratory/Chest Respiratory/Chest: Denies chest tightness, cough, dyspnea or breast pain Gastrointestinal Gastrointestinal: Denies abdominal pain, anorexia, constipation, cramping, diarrhea, hemorrhoids, vomiting or weight changes Genitourinary Genitourinary: Denies dysuria, flank pain, genital lesions, genital pain, urinary frequency or urinary urgency Musculoskeletal Musculoskeletal: Denies back pain, difficulty walking, joint pain, limited range of motion, muscle cramps or numbness Integumentary Integumentary: Denies lesions or unusual bruising Neurologic Neurologic: Denies abnormal movements, abnormal speech, dizziness, numbness, seizure-like activity or syncope Psychiatric Psychiatric: Denies anxiety, behavioral changes, change in appetite, change in libido, cognitive impairment, confusion, depression, difficulty concentrating, hallucinations or suicidal thoughts Endocrine Endocrinology: Denies excessive sweating, polydipsia or polyuria Hematologic/Lymphatic Hematologic/Lymphatic: Denies easy bleeding, easy bruising or lymphadenopathy Allergic/Immunologic Allergic/Immunologic: Denies itchy eyes, lip swelling, seasonal rhinorrhea, rhinitis, throat swelling, tongue swelling, eczemia, wheezing or asthma Vital Signs Vital Signs Vital Signs: 02/14/23 01:21 02/14/23 01:21 02/14/23 01:21 Temperature Pulse Rate 164 H Blood Pressure 127/85 H BP Systolic 127 BP Diastolic 85 Pulse Ox 80 02/14/23 01:21 02/14/23 01:22 02/14/23 08:36 Temperature 97.2 F L 97.9 F Pulse Rate 80 Blood Pressure BP Systolic BP Diastolic Pulse Ox 02/14/23 08:36 02/14/23 08:36 02/14/23 12:01 Temperature Pulse Rate 71 Blood Pressure 120/74 119/78 BP Systolic 120 119 BP Diastolic 74 78 Pulse Ox 02/14/23 12:01 02/14/23 12:06 02/14/23 12:06 Temperature Pulse Rate 93 92 Blood Pressure 150/69 H BP Systolic 150 BP Diastolic 69 Pulse Ox Weight Weight: 229 lb 11.547 oz Body Mass Index (BMI) 33.9 Physical Exam Const alert, oriented x3, no apparent distress and healthy appearing General Appearance: cooperative; Negative for anxious HEENT normocephalic Face and Sinus: normal facial exam Eyes EOMs intact bilaterally and no scleral icterus General Eye: normal appearance of both eyes Neck full ROM and supple Lymph Lymphatic: no lymphadenopathy noted Chest Chest: abnormal inspection of the chest Resp normal respiratory effort Effort and Inspection: able to speak in complete sentences Cardio regular rate GI soft to palpation and non-tender Inspection: gravid Palpation: soft; Negative for tender external exam normal Amniotic Fluid: ROM+plus Back/Spine no CVA tenderness Extremity normal to inspection, full ROM and no clubbing, cyanosis or edema General Extremity: Negative for calf tenderness or edema Skin Lesions: no lesions Rashes: no rashes Psych mental status grossly normal Labs Labs Labs: Blood Type O POSITIVE Antibody Screen NEGATIVE Hct 39.8 % (37-47) Hgb 12.9 g/dL (12.0-15.0) Obstetrics US Syphilis Total Ab Non-reactive VZV IgG Antibody 605 index (Immune >165) Rubella IgG Antibody Reactive (Nonreactive) Hep Bs Antigen Non-Reactive (Nonreactive) Chlamydia DNA ([facility]) Negative (Negative) Neisseria gonorrhoeae DNA ([facility]) Negative (Negative) HIV 1&2 Antibody Non-Reactive (Nonreactive) Glucose 1 Hr 50 gm 88 mg/dL (70-140) Assessment & Plan (1) False labor after 37 completed weeks of gestation: (2) Anxiety: COMMENT: sees therapist/stable (3) Abnormal ultrasound: COMMENT: Normal follow up US of rectum and normal echo. previously seen on anatomy scan. (4) Family history of VATER complex: COMMENT: MFM Normal 24 week echo. sister with VACTERL/VATER (5) Supervision of high risk , antepartum: COMMENT: PRR , NATE 02/19/22, boy Jere (6) : QUALIFIERS: Weeks of gestation: 39 weeks Qualified Code(s): Z3A.39 - 39 weeks gestation of COMMENT: GBS neg, NIPT low risk, carrier testing neg. , nl anatomy Dilated rectum- nl on repeat PLAN: Plan Patient presents IOL, plan management for with pitocin/AROM. Pain management: plans epidural. GBS negative. Management of any complications: none I have reviewed the [facility] and made any clinically relevant updates.
[2023-02-14] MEDS: Oxytocin 15 Units/NS 250ml 15 UNITS/250 ML IV.SOLN 2 UNITS IV (12:33)
[2023-02-14] MEDS: fentaNYL-bupivacaine (epidural) 100 ML BAG EPIDURAL (12:33)
--- NOTE | 2023-02-14 13:02 | PN_ITS ---
Progress Note pt is comfortable with epidural and consents to arom. current tracing: FHT: Moderate variability reactive no decelerations category I tracing [place]: rare Contractions cx: 6/90/0, membranes ruptured and clear fluid returned. reviewed tracing abnormalities since last note: no change A/P: continue pitocin and expectant management.
[2023-02-14] MEDS: Sodium Citrate/Citric Acid 30 ML UDC PO (13:14)
[2023-02-14] MEDS: Methylergonovine 0.2 MG/ML Ampul IM (16:04)
[2023-02-14] MEDS: Oxytocin 15 Units/NS 250ml 15 UNITS/250 ML IV.SOLN 167 UNITS IV (16:30)
--- NOTE | 2023-02-14 16:57 | EX.PCM.OBRPT ---
Assessment & Plan (1) False labor after 37 completed weeks of gestation: (2) Anxiety: COMMENT: sees therapist/stable (3) Abnormal ultrasound: COMMENT: Normal follow up US of rectum and normal echo. previously seen on anatomy scan. (4) Family history of VATER complex: COMMENT: MFM Normal 24 week echo. sister with VACTERL/VATER (5) Supervision of high risk , antepartum: COMMENT: PRR , NATE 02/19/22, boy Jere (6) : QUALIFIERS: Weeks of gestation: 39 weeks Qualified Code(s): Z3A.39 - 39 weeks gestation of COMMENT: GBS neg, NIPT low risk, carrier testing neg. , nl anatomy Dilated rectum- nl on repeat Maternal Data Information NATE Calculator Estimated Delivery Date Method Current WG Current Estimate 02/19/23 LMP (Certain) 39w 2d Other Estimates 02/14/23 Ultrasound #1 40w 0d Gestational age: 39 weeks 2 days Vaginal Delivery Maternal Presentation Maternal Presentation: Active Labor (early labor ) Type of Induction: Pitocin and Amniotomy Operative Information Date of Procedure: 02/14/23 Pre-Operative Diagnosis: 32 y/o @ 39 weeks 2 days, early labor Post-Operative Diagnosis: 32 y/o @ 39 weeks 2 days, early labor Type of Anesthesia: Epidural Estimated Blood Loss: 200cc Findings Description of Procedure: Patient began pushing and delivered the head in the CRYSTAL presentation. The head was delivered atraumatically . The anterior and posterior shoulders delivered without complication followed by the rest of the infant and the was placed on the maternal abdomen. Delayed cord clamping was employed for approximately 60 seconds. Cord was clamped and cut and gentle traction was applied to the cord and the placenta delivered spontaneously immediately following it was noted to be intact with three-vessel cord. The perineum and vagina were inspected and noted to have a 1st degree perineal laceration repaired with a 3-0 vicryl. EBL was 200cc. Patient and tolerated delivery well. Presentation: Vertex Amniotic Membrane Rupture Type: Artificial Amniotic Fluid Description: Clear Placental Delivery Description: Spontaneous Placenta Disposition: [facility] Cord Vessel Description: 3 Vessels Cord Entanglement: None A Gender: Male (1 minute): 9 (5 minute): 9 Delayed Cord Clamping: Yes Post Vaginal Delivery Medications Given After Delivery: IV Pitocin and IM Methergin Episiotomy Description: None Laceration: Periurethral Extnsion/lac and 2nd degree Multi Select Codes Urinary/Genital Urinary/Genital CPT Codes: 13513 Vaginal Delivery [facility]
--- NOTE | 2023-02-14 18:02 | PCM.NUR.HP ---
Subjective Subjective: This term, AGA male was delivered vaginally at 38.6 weeks gestation on 02[birth year]/2023 at 11: 50. Birthweight 3275 g. The mother is a 29-year-old G3P 2?3, blood type O+, antibody negative ( blood type B+/WILLIAN negative), GBS positive, RPR negative, rubella immune, hepatitis B and C negative, HIV negative, GC/chlamydia not reported. was complicated by anxiety managed with therapy and family history of maternal aunt with VACTERL. MFM consult occurred was normal ultrasound at 24 weeks gestation. No gestational diabetes. AROM clear 5 hours prior to delivery. vigorous on delivery with Apgars 9, 9. Objective Objective Data: 02/14/23 01:21 02/14/23 01:21 02/14/23 01:21 Temperature Pulse Rate 164 H Blood Pressure 127/85 H BP Systolic 127 BP Diastolic 85 Pulse Ox 80 02/14/23 01:21 02/14/23 01:22 02/14/23 08:36 Temperature 97.2 F L 97.9 F Pulse Rate 80 Blood Pressure BP Systolic BP Diastolic Pulse Ox 02/14/23 08:36 02/14/23 08:36 02/14/23 12:01 Temperature Pulse Rate 71 Blood Pressure 120/74 119/78 BP Systolic 120 119 BP Diastolic 74 78 Pulse Ox 02/14/23 12:01 02/14/23 12:06 02/14/23 12:06 Temperature Pulse Rate 93 92 Blood Pressure 150/69 H BP Systolic 150 BP Diastolic 69 Pulse Ox 02/14/23 12:18 02/14/23 12:18 02/14/23 12:21 Temperature Pulse Rate 79 Blood Pressure 121/74 H BP Systolic 121 BP Diastolic 74 Pulse Ox 99 02/14/23 12:21 02/14/23 12:23 02/14/23 12:23 Temperature Pulse Rate 80 78 Blood Pressure BP Systolic BP Diastolic Pulse Ox 100 02/14/23 12:26 02/14/23 12:26 02/14/23 12:29 Temperature Pulse Rate 83 77 Blood Pressure 118/72 BP Systolic 118 BP Diastolic 72 Pulse Ox 02/14/23 12:29 02/14/23 12:31 02/14/23 12:31 Temperature Pulse Rate 82 Blood Pressure 113/69 BP Systolic 113 BP Diastolic 69 Pulse Ox 99 02/14/23 12:34 02/14/23 12:34 02/14/23 12:36 Temperature Pulse Rate 83 Blood Pressure 112/65 BP Systolic 112 BP Diastolic 65 Pulse Ox 98 02/14/23 12:36 02/14/23 12:39 02/14/23 12:39 Temperature Pulse Rate 75 80 Blood Pressure BP Systolic BP Diastolic Pulse Ox 98 02/14/23 12:42 02/14/23 12:42 02/14/23 12:45 Temperature Pulse Rate 88 81 Blood Pressure 120/78 BP Systolic 120 BP Diastolic 78 Pulse Ox 02/14/23 12:45 02/14/23 12:48 02/14/23 12:48 Temperature Pulse Rate 78 Blood Pressure 118/65 BP Systolic 118 BP Diastolic 65 Pulse Ox 97 02/14/23 12:49 02/14/23 12:50 02/14/23 12:50 Temperature 97.9 F Pulse Rate 73 Blood Pressure BP Systolic BP Diastolic Pulse Ox 98 02/14/23 12:52 02/14/23 12:52 02/14/23 12:55 Temperature Pulse Rate 69 91 Blood Pressure 119/67 BP Systolic 119 BP Diastolic 67 Pulse Ox 02/14/23 12:55 02/14/23 12:58 02/14/23 12:58 Temperature Pulse Rate 78 Blood Pressure 125/69 H BP Systolic 125 BP Diastolic 69 Pulse Ox 98 02/14/23 13:01 02/14/23 13:01 02/14/23 13:00 Temperature Pulse Rate 72 Blood Pressure 132/78 H BP Systolic 132 BP Diastolic 78 Pulse Ox 99 02/14/23 13:05 02/14/23 13:05 02/14/23 13:10 Temperature Pulse Rate 70 68 Blood Pressure BP Systolic BP Diastolic Pulse Ox 100 02/14/23 13:10 02/14/23 13:15 02/14/23 13:15 Temperature Pulse Rate 97 Blood Pressure BP Systolic BP Diastolic Pulse Ox 100 100 02/14/23 13:54 02/14/23 13:55 02/14/23 13:55 Temperature 96.1 F L Pulse Rate 75 Blood Pressure 103/58 L BP Systolic 103 BP Diastolic 58 Pulse Ox 02/14/23 14:44 02/14/23 14:55 02/14/23 14:55 Temperature 97.9 F Pulse Rate 76 Blood Pressure BP Systolic BP Diastolic Pulse Ox 100 02/14/23 15:00 02/14/23 15:00 02/14/23 15:04 Temperature Pulse Rate 81 90 Blood Pressure BP Systolic BP Diastolic Pulse Ox 100 02/14/23 15:04 02/14/23 15:05 02/14/23 15:05 Temperature Pulse Rate 80 Blood Pressure BP Systolic BP Diastolic Pulse Ox 91 98 02/14/23 16:14 02/14/23 16:14 02/14/23 16:28 Temperature Pulse Rate 93 Blood Pressure 123/60 H 112/64 BP Systolic 123 112 BP Diastolic 60 64 Pulse Ox 02/14/23 16:28 02/14/23 16:43 02/14/23 16:43 Temperature Pulse Rate 68 74 Blood Pressure 122/71 H BP Systolic 122 BP Diastolic 71 Pulse Ox 02/14/23 16:58 02/14/23 16:58 02/14/23 17:13 Temperature Pulse Rate 65 Blood Pressure 113/69 125/72 H BP Systolic 113 125 BP Diastolic 69 72 Pulse Ox 02/14/23 17:13 02/14/23 17:28 02/14/23 17:28 Temperature Pulse Rate 64 72 Blood Pressure 124/71 H BP Systolic 124 BP Diastolic 71 Pulse Ox 02/14/23 17:43 02/14/23 17:43 02/14/23 17:58 Temperature Pulse Rate 76 Blood Pressure 135/67 H 127/77 H BP Systolic 135 127 BP Diastolic 67 77 Pulse Ox 02/14/23 17:58 Temperature Pulse Rate 77 Blood Pressure BP Systolic BP Diastolic Pulse Ox Weight: 104.2 kg Vital Signs Temp Pulse BP Pulse Ox 02/14/23 17:58 77 02/14/23 17:58 127/77 H 02/14/23 17:43 76 02/14/23 17:43 135/67 H 02/14/23 17:28 72 02/14/23 17:28 124/71 H 02/14/23 17:13 64 02/14/23 17:13 125/72 H 02/14/23 16:58 65 02/14/23 16:58 113/69 02/14/23 16:43 74 02/14/23 16:43 122/71 H 02/14/23 16:28 68 02/14/23 16:28 112/64 02/14/23 16:14 93 02/14/23 16:14 123/60 H 02/14/23 15:05 98 02/14/23 15:05 80 02/14/23 15:04 91 02/14/23 15:04 90 02/14/23 15:00 100 02/14/23 15:00 81 02/14/23 14:55 100 02/14/23 14:55 76 02/14/23 14:44 97.9 F 02/14/23 13:55 75 02/14/23 13:55 103/58 L 02/14/23 13:54 96.1 F L 02/14/23 13:15 100 02/14/23 13:15 97 02/14/23 13:10 100 02/14/23 13:10 68 02/14/23 13:05 100 02/14/23 13:05 70 02/14/23 13:00 99 02/14/23 13:01 72 02/14/23 13:01 132/78 H 02/14/23 12:58 78 02/14/23 12:58 125/69 H 02/14/23 12:55 98 02/14/23 12:55 91 02/14/23 12:52 69 02/14/23 12:52 119/67 02/14/23 12:50 98 02/14/23 12:50 73 02/14/23 12:49 97.9 F 02/14/23 12:48 78 02/14/23 12:48 118/65 02/14/23 12:45 97 02/14/23 12:45 81 02/14/23 12:42 88 02/14/23 12:42 120/78 02/14/23 12:39 98 02/14/23 12:39 80 02/14/23 12:36 75 02/14/23 12:36 112/65 02/14/23 12:34 98 02/14/23 12:34 83 02/14/23 12:31 82 02/14/23 12:31 113/69 02/14/23 12:29 99 02/14/23 12:29 77 02/14/23 12:26 83 02/14/23 12:26 118/72 02/14/23 12:23 100 02/14/23 12:23 78 02/14/23 12:21 80 02/14/23 12:21 121/74 H 02/14/23 12:18 99 06/16/23 12:18 79 02/14/23 12:06 92 02/14/23 12:06 150/69 H 02/14/23 12:01 93 02/14/23 12:01 119/78 02/14/23 08:36 71 02/14/23 08:36 120/74 02/14/23 08:36 97.9 F 02/14/23 01:22 97.2 F L 02/14/23 01:21 80 02/14/23 01:21 127/85 H 02/14/23 01:21 80 02/14/23 01:21 164 H Lab tests last 48H 02/14/23 02/14/23 02/14/23 01:40 10:40 10:40 WBC 9.0 RBC 4.15 L Hgb 12.9 Hct 39.8 MCV 95.9 MCH 31.1 MCHC 32.4 RDW Std Deviation 45.2 H RDW Coeff of Aditya 13.0 Plt Count 287 MPV 9.6 Immature Gran % (Auto) 0.400 Neut % (Auto) 68.9 Lymph % (Auto) 22.7 Bert[place] % (Auto) 7.4 Eos % (Auto) 0.4 Baso % (Auto) 0.2 Absolute Neuts (auto) 6.2 Absolute Lymphs (auto) 2.05 Nucleated RBC % 0 Vag Amniotic Fld Detect Negative Syphilis Total Ab Blood Type O POSITIVE Antibody Screen NEGATIVE 02/14/23 10:40 WBC RBC Hgb Hct MCV MCH MCHC RDW Std Deviation RDW Coeff of Aditya Plt Count MPV Immature Gran % (Auto) Neut % (Auto) Lymph % (Auto) [place] % (Auto) Eos % (Auto) Baso % (Auto) Absolute Neuts (auto) Absolute Lymphs (auto) Nucleated RBC % Vag Amniotic Fld Detect Syphilis Total Ab Non-reactive Blood Type Antibody Screen Vital Signs Vital Signs Vital Signs: 02/14/23 01:21 02/14/23 01:21 02/14/23 01:21 Temperature Pulse Rate 164 H Blood Pressure 127/85 H BP Systolic 127 BP Diastolic 85 Pulse Ox 80 02/14/23 01:21 02/14/23 01:22 02/14/23 08:36 Temperature 97.2 F L 97.9 F Pulse Rate 80 Blood Pressure BP Systolic BP Diastolic Pulse Ox 02/14/23 08:36 02/14/23 08:36 02/14/23 12:01 Temperature Pulse Rate 71 Blood Pressure 120/74 119/78 BP Systolic 120 119 BP Diastolic 74 78 Pulse Ox 02/14/23 12:01 02/14/23 12:06 02/14/23 12:06 Temperature Pulse Rate 93 92 Blood Pressure 150/69 H BP Systolic 150 BP Diastolic 69 Pulse Ox 02/14/23 12:18 02/14/23 12:18 02/14/23 12:21 Temperature Pulse Rate 79 Blood Pressure 121/74 H BP Systolic 121 BP Diastolic 74 Pulse Ox 99 02/14/23 12:21 02/14/23 12:23 02/14/23 12:23 Temperature Pulse Rate 80 78 Blood Pressure BP Systolic BP Diastolic Pulse Ox 100 02/14/23 12:26 02/14/23 12:26 02/14/23 12:29 Temperature Pulse Rate 83 77 Blood Pressure 118/72 BP Systolic 118 BP Diastolic 72 Pulse Ox 02/14/23 12:29 02/14/23 12:31 02/14/23 12:31 Temperature Pulse Rate 82 Blood Pressure 113/69 BP Systolic 113 BP Diastolic 69 Pulse Ox 99 02/14/23 12:34 02/14/23 12:34 02/14/23 12:36 Temperature Pulse Rate 83 Blood Pressure 112/65 BP Systolic 112 BP Diastolic 65 Pulse Ox 98 02/14/23 12:36 02/14/23 12:39 02/14/23 12:39 Temperature Pulse Rate 75 80 Blood Pressure BP Systolic BP Diastolic Pulse Ox 98 02/14/23 12:42 02/14/23 12:42 02/14/23 12:45 Temperature Pulse Rate 88 81 Blood Pressure 120/78 BP Systolic 120 BP Diastolic 78 Pulse Ox 02/14/23 12:45 02/14/23 12:48 02/14/23 12:48 Temperature Pulse Rate 78 Blood Pressure 118/65 BP Systolic 118 BP Diastolic 65 Pulse Ox 97 02/14/23 12:49 02/14/23 12:50 02/14/23 12:50 Temperature 97.9 F Pulse Rate 73 Blood Pressure BP Systolic BP Diastolic Pulse Ox 98 02/14/23 12:52 02/14/23 12:52 02/14/23 12:55 Temperature Pulse Rate 69 91 Blood Pressure 119/67 BP Systolic 119 BP Diastolic 67 Pulse Ox 02/14/23 12:55 02/14/23 12:58 02/14/23 12:58 Temperature Pulse Rate 78 Blood Pressure 125/69 H BP Systolic 125 BP Diastolic 69 Pulse Ox 98 02/14/23 13:01 02/14/23 13:01 02/14/23 13:00 Temperature Pulse Rate 72 Blood Pressure 132/78 H BP Systolic 132 BP Diastolic 78 Pulse Ox 99 02/14/23 13:05 02/14/23 13:05 02/14/23 13:10 Temperature Pulse Rate 70 68 Blood Pressure BP Systolic BP Diastolic Pulse Ox 100 02/14/23 13:10 02/14/23 13:15 02/14/23 13:15 Temperature Pulse Rate 97 Blood Pressure BP Systolic BP Diastolic Pulse Ox 100 100 02/14/23 13:54 02/14/23 13:55 02/14/23 13:55 Temperature 96.1 F L Pulse Rate 75 Blood Pressure 103/58 L BP Systolic 103 BP Diastolic 58 Pulse Ox 02/14/23 14:44 02/14/23 14:55 02/14/23 14:55 Temperature 97.9 F Pulse Rate 76 Blood Pressure BP Systolic BP Diastolic Pulse Ox 100 02/14/23 15:00 02/14/23 15:00 02/14/23 15:04 Temperature Pulse Rate 81 90 Blood Pressure BP Systolic BP Diastolic Pulse Ox 100 02/14/23 15:04 02/14/23 15:05 02/14/23 15:05 Temperature Pulse Rate 80 Blood Pressure BP Systolic BP Diastolic Pulse Ox 91 98 02/14/23 16:14 02/14/23 16:14 02/14/23 16:28 Temperature Pulse Rate 93 Blood Pressure 123/60 H 112/64 BP Systolic 123 112 BP Diastolic 60 64 Pulse Ox 02/14/23 16:28 02/14/23 16:43 02/14/23 16:43 Temperature Pulse Rate 68 74 Blood Pressure 122/71 H BP Systolic 122 BP Diastolic 71 Pulse Ox 02/14/23 16:58 02/14/23 16:58 02/14/23 17:13 Temperature Pulse Rate 65 Blood Pressure 113/69 125/72 H BP Systolic 113 125 BP Diastolic 69 72 Pulse Ox 02/14/23 17:13 02/14/23 17:28 02/14/23 17:28 Temperature Pulse Rate 64 72 Blood Pressure 124/71 H BP Systolic 124 BP Diastolic 71 Pulse Ox 02/14/23 17:43 02/14/23 17:43 02/14/23 17:58 Temperature Pulse Rate 76 Blood Pressure 135/67 H 127/77 H BP Systolic 135 127 BP Diastolic 67 77 Pulse Ox 02/14/23 17:58 Temperature Pulse Rate 77 Blood Pressure BP Systolic BP Diastolic Pulse Ox Weight Weight: 104.2 kg Body Mass Index (BMI) 33.9 General Weight: 104.2 kg
[2023-02-14] MEDS: 0.9% Saline Lock 10 ML Syringe IV (19:46)
[2023-02-14] MEDS: Ibuprofen 600 MG Tablet PO (21:44)
[2023-02-15] VITALS (10 sets, daily range): BP systolic 99–121; BP diastolic 55–76; PULSE 69–81; RESP 16–18; TEMP 36.3–36.4; O2SAT 97–99
[2023-02-15] MEDS: Acetaminophen 500 MG Tablet 1000 MG PO ×2 (02:52→19:48)
--- NOTE | 2023-02-15 08:22 | DCINST_ITS ---
Discharge Instructions Diet Discharge Diet: No restrictions Activity Discharge Activity: Return to Normal Activity, May Not Drive (while taking narcotic pain medications.) and May Shower May resume sexual activity in: 4-6 weeks Dressing / Incision Call your doctor if your incision/area has: Continuous Slow Oozing, Sudden Increased Bleeding, Increased Pain/ Swelling, Increased Redness and Foul Smelling Discharge Follow Up Care Please Follow Up With: Mayra Pyane DO When: Call [phone] to make an appointment with your doctor in 6 weeks. If you had elevated blood pressure or 4th degree laceration, you will need to be seen in 2 weeks. Test Results: Test results from this visit will be discussed in further detail at your follow- up appointment, if applicable. Discharge Plan Admission Admit Date/Time: 02/14/23 10:20 Primary Reason for Your Visit: vaginal delivery Attending Provider: Mayra Payne Primary Care Provider: Tish Valdes Discharge Orders/Prescriptions Prescriptions: New ibuprofen 800 mg tablet 800 mg PO Q8H PRN (Reason: pain) Qty: 30 0RF Continued prenat.vits,bhavesh,[id number] Tablet 1 tab PO DAILY docusate sodium [Colace] 100 mg capsule 100 mg PO DAILY famotidine [Pepcid] 20 mg tablet 20 mg PO DAILY Discontinued metoclopramide HCl [Reglan] 5 mg tablet 5 mg PO QAC PRN (Reason: nausea and vomiting) Qty: 30 2RF Rx Instructions: administer 30 minutes before meals Referrals / Follow Up: Tish Valdes MD [Primary Care Provider] - Disposition Disposition (needs filled in before D/C Order can be placed): Home, Self Care
--- NOTE | 2023-02-15 08:23 | PN.OBGYN_ITS ---
Subjective Subjective pt is sitting up in bed with no complaints. Lochia is mild with occasional small clots. She is not sure she wants to go home today Objective Data Objective Data Vital Signs: Vital Signs Temp Pulse Resp BP Pulse Ox 97.5 F L 77 16 108/66 98 02/15/23 08:20 02/15/23 08:19 02/15/23 04:36 02/15/23 08:19 02/14/23 15:05 Weight: 229 lb 11.547 oz Body Mass Index (BMI) 33.9 Intake & Output: Intake and Output for Last 24 Hours 02/13/23 02/14/23 02/15/23 23:59 23:59 23:59 Intake Total 2000.00 / 2000.00 Output Total 800 / 800 1300 / 1300 Balance 1200.00 / 1200.00 -1300 / -1300 Lab / Micro Data Result Diagrams: 02/14/23 10:40 Labs: Laboratory Results - last 24 hr 02/14/23 10:40: WBC 9.0, RBC 4.15 L, Hgb 12.9, Hct 39.8, MCV 95.9, MCH 31.1, MCHC 32.4, RDW Std Deviation 45.2 H, RDW Coeff of Aditya 13.0, Plt Count 287, MPV 9.6, Immature Gran % (Auto) 0.400, Neut % (Auto) 68.9, Lymph % (Auto) 22.7, [place] % (Auto) 7.4, Eos % (Auto) 0.4, Baso % (Auto) 0.2, Absolute Neuts (auto) 6.2, Absolute Lymphs (auto) 2.05, Nucleated RBC % 0 02/14/23 10:40: Blood Type O POSITIVE, Antibody Screen NEGATIVE 02/14/23 10:40: Syphilis Total Ab Non-reactive ROS Constitutional Constitutional: Denies chills, fatigue, fever(s), poor appetite or weakness Eyes Eyes: Denies blurry vision, change in vision, seeing flashes or spots in vision ENT HEENT: Denies dizziness, headache(s), loss taste/smell or sore throat Cardiovascular Cardiovascular: Denies chest pain, dizziness, dyspnea, irregular heart rhythm, palpitations or rapid heart rate Respiratory/Chest Respiratory/Chest: Denies chest tightness, cough, dyspnea or breast pain Gastrointestinal Gastrointestinal: Denies abdominal pain, constipation or vomiting Genitourinary Genitourinary: Denies dysuria or flank pain Musculoskeletal Musculoskeletal: Denies difficulty walking, joint pain, limited range of motion or numbness Neurologic Neurologic: Denies abnormal movements, abnormal speech, dizziness, numbness, seizure-like activity or syncope Psychiatric Psychiatric: Denies anxiety, behavioral changes, change in appetite, confusion, depression or suicidal thoughts Physical Exam Const alert, oriented x3 and no apparent distress General Appearance: cooperative and comfortable Resp normal respiratory effort Cardio regular rate GI normal to inspection, nondistended, normoactive bowel sounds GI Narrative: uterus is firm below umbilicus Palpation: soft Back/Spine no CVA tenderness and thoraco-lumbar ROM normal Extremity normal to inspection, no clubbing, cyanosis or edema, no calf tenderness and no pedal edema Psych mental status grossly normal, thought process normal, cooperative, affect normal, speech normal, activity/motor behavior normal, denies homicidal ideation and denies suicidal ideation Assessment & Plan (1) Status post vaginal delivery: PLAN: s/p PPD # 1 1. routine post delivery care 2. breast feeding- support given 3. rh positive 4. rubella immune 5. ok to stay one more night for support 6. dc to home when ready later tonight or tomorrow am.
[2023-02-15] MEDS: Ibuprofen 600 MG Tablet PO ×2 (08:29→16:16)
[2023-02-15] MEDS: Docusate Sodium 100 MG Capsule PO (10:06)
[2023-02-15] MEDS: Famotidine 20 MG Tablet PO (10:06)
[2023-02-16 00:51] VITALS: O2SAT 96
[2023-02-16 00:52] VITALS: BP 119/67; PULSE 78; TEMP 36.6
[2023-02-16] MEDS: Ibuprofen 600 MG Tablet PO ×2 (00:58→09:12)
[2023-02-16 01:00] VITALS: BP 119/67; PULSE 82; RESP 15; TEMP 36.6; O2SAT 96
--- NOTE | 2023-02-16 07:34 | PCM.PN.OB ---
Subjective Subjective pt is sitting up in bed breast feeding and doing well. she states that lochia is mild and wants to go home Objective Data Objective Data Vital Signs: Vital Signs Temp Pulse Resp BP Pulse Ox O2 Del Method 97.8 F 82 15 119/67 96 Room Air 02/16/23 01:00 02/16/23 01:00 02/16/23 01:00 02/16/23 01:00 02/16/23 01:00 02/16/23 01:00 Oxygen Delivery Method Room Air Weight: 229 lb 11.547 oz Body Mass Index (BMI) 33.9 Intake & Output: Intake and Output for Last 24 Hours 02/14/23 02/15/23 02/16/23 23:59 23:59 23:59 Intake Total 2000.00 / 1999.00 Output Total 800 / 800 1300 / 1300 Balance 1200.00 / 1200.00 -1300 / -1300 Lab / Micro Data Result Diagrams: 02/14/23 10:40 ROS Constitutional Constitutional: Denies chills, fatigue, fever(s), poor appetite or weakness Eyes Eyes: Denies blurry vision, change in vision, seeing flashes or spots in vision ENT HEENT: Denies dizziness, headache(s), loss taste/smell or sore throat Cardiovascular Cardiovascular: Denies chest pain, dizziness, dyspnea, irregular heart rhythm, palpitations or rapid heart rate Respiratory/Chest Respiratory/Chest: Denies chest tightness, cough, dyspnea or breast pain Gastrointestinal Gastrointestinal: Denies abdominal pain, constipation or vomiting Genitourinary Genitourinary: Denies dysuria or flank pain Musculoskeletal Musculoskeletal: Denies difficulty walking, joint pain, limited range of motion or numbness Neurologic Neurologic: Denies abnormal movements, abnormal speech, dizziness, numbness, seizure-like activity or syncope Psychiatric Psychiatric: Denies anxiety, behavioral changes, change in appetite, confusion, depression or suicidal thoughts Physical Exam Const alert, oriented x3 and no apparent distress General Appearance: cooperative and comfortable Resp normal respiratory effort Cardio regular rate GI normal to inspection, nondistended, normoactive bowel sounds GI Narrative: uterus is firm below umbilicus Palpation: soft Back/Spine no CVA tenderness and thoraco-lumbar ROM normal Extremity normal to inspection, no clubbing, cyanosis or edema, no calf tenderness and no pedal edema Psych mental status grossly normal, thought process normal, cooperative, affect normal, speech normal, activity/motor behavior normal, denies homicidal ideation and denies suicidal ideation Assessment & Plan (1) Status post vaginal delivery: PLAN: s/p PPD # 2 1. routine post delivery care 2. breast feeding- support given 3. rh positive 4. rubella immune 5. dc to home today (2) Abnormal ultrasound: COMMENT: Normal follow up US of rectum and normal echo. previously seen on anatomy scan. (3) Family history of VATER complex: COMMENT: MFM Normal 24 week echo. sister with VACTERL/VATER (4) Supervision of high risk , antepartum: COMMENT: PRR , NATE 02/19/22, boy Jere (5) : QUALIFIERS: Weeks of gestation: 39 weeks Qualified Code(s): Z3A.39 - 39 weeks gestation of COMMENT: GBS neg, NIPT low risk, carrier testing neg. , nl anatomy Dilated rectum- nl on repeat
[2023-02-16 08:15] VITALS: BP 121/71; PULSE 76
[2023-02-16 08:16] VITALS: PULSE 72; TEMP 36.4; O2SAT 97
[2023-02-16 08:30] VITALS: BP 121/71; PULSE 76; RESP 16; TEMP 36.4; O2SAT 98
[2023-02-16] MEDS: Docusate Sodium 100 MG Capsule PO (09:12)
== END 2023-02-16 12:00 | disposition home or self-care (01) | DRG 807 ==
LOC: WPOUT 10:22 → WP 10:22
PROVIDERS: Admitting Provider Obstetrics & Gynecology; PCP Internal Medicine; Referring Provider Obstetrics & Gynecology; Visit Provider Obstetrics & Gynecology
DX: O99.344 Other mental disorders complicating childbirth (principal); Z37.0 Single live birth; F41.9 Anxiety disorder, unspecified; O70.0 First degree perineal laceration during delivery; Z3A.39 39 weeks gestation of pregnancy
CPT/HCPCS: 59050; 84112; 85025; 86780; 86850; 86900; 86901; 99221; J7120; A4216; G0378

== ENCOUNTER 2023-10-26 11:20 | Emergency (ER) | payer OTHER, SELFPAY ==
[2023-10-26 11:22] VITALS: BP 133/75; PULSE 107; RESP 16; TEMP 36.2; O2SAT 100; BMI 30.7
--- NOTE | 2023-10-26 11:28 | EX.ED.UPPERE ---
HPI <PASCUAL Holley - Last Filed: 10/26/23 12:04> History of Present Illness Chief Complaint: Laceration Narrative Narrative: Patient was using a knife to slice of bread and cut her left index finger. Bleeding is controlled. No weakness or paresthesias. Tetanus is up-to-date. [facility] <PASCUAL Holley - Last Filed: 10/26/23 12:04> [facility] Medical History (Updated 10/26/23 @ 11:30 by PASCUAL Holley) history of eyelid repair History of ovarian cyst Preventative health care Seasonal allergies Home Medications prenat.vits,bhavesh,jwr-akcn-exlgn 1 tab PO DAILY Check with primary doctor 03/27/20 [History Last Taken Unknown] docusate sodium 100 mg capsule (Colace) 100 mg PO DAILY Check with primary doctor 08/14/22 [History Last Taken Unknown] ibuprofen 800 mg tablet 800 mg PO Q8H PRN pain #30 tabs 03/28/23 [Rx Last Taken Unknown] norethindrone (contraceptive) 0.35 mg tablet 0.35 mg PO DAILY 90 days #90 tabs 03/28/23 [Rx Last Taken Unknown] Allergy/AdvReac Type Severity Reaction Status Date / Time No Known Allergies Allergy Verified 10/26/23 11:23 Family History Sister Deafness Cleft lip and cleft palate Grandmother Thyroid disorder Diabetes Kidney disease Brain aneurysm Father Advanced cirrhosis of liver Surgical History History of unilateral fallopian tube excision Social History adopted: No household members: spouse housing: house number of children: 1 current occupational status: employed current occupation: [employer] - [employer] current occupational exposures/hazards: No pets and animals: Yes pets and animals: dog(s) history of recent travel: Yes ([place]) out of state: Yes out of country: No sexually active: Yes Smoking Status: Never smoker alcohol intake: former details: socially prior to substance use type: does not use well-balanced diet: daily or most days caffeine: No eating out: 1-3 times/week during the past year weight has: remained stable what type of physical activity do you participate in: walking and running frequency: daily duration: 30-45 minutes/day tramaine/episcopal: Baptist seatbelt use: always do you feel safe at home: Yes 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 Skin: Positive for laceration. Musc: Negative for joint pain. EXAM <PASCUAL Holley - Last Filed: 10/26/23 12:04> Physical Exam Narrative Exam Narrative: CONST: Patient sitting in no acute distress. EYES: Normal inspection. NECK: Normal inspection. SKIN: 2 cm linear laceration on the left index finger pad extending horizontally. No active bleeding, no tendon injury. EXTREMITIES: Normal appearance, full ROM left hand and digits, normal motor and sensory function in median radial and ulnar distributions, 2+ radial pulse brisk cap refill. NEURO: Oriented x4. PSYCH: Normal affect. Const Vital Signs: 10/26/23 11:22 Temperature 97.2 F L Temperature Source Temporal Pulse Rate 107 H Respiratory Rate 16 Blood Pressure 133/75 H Blood Pressure Mean 94 Pulse Ox 100 Oxygen Delivery Method Room Air [facility] <PASCUAL Holley - Last Filed: 10/26/23 12:04> [facility] Narrative Medical decision making narrative: Patient has 2 cm left index finger laceration on the finger pad. There is no active bleeding, no tendon injury, and extremity is neurovascularly intact. Tetanus is already up-to-date. Wound was prepped and draped in sterile condition and closed with 4 simple interrupted sutures. She tolerated procedure well without complications. Wound care instructions were discussed and she was discharged in stable condition. <Binu Mendoza MD - Last Filed: 10/26/23 13:51> [facility] Narrative Medical decision making narrative: Patient has 2 cm left index finger laceration on the finger pad. There is no active bleeding, no tendon injury, and extremity is neurovascularly intact. Tetanus is already up-to-date. Wound was prepped and draped in sterile condition and closed with 4 simple interrupted sutures. She tolerated procedure well without complications. Wound care instructions were discussed and she was discharged in stable condition. Dr. Mendoza: I have personally performed a face to face assessment of the patient and have reviewed the VIMAL Note. I performed a substantive portion of the visit including all aspects of the following. My staley findings include: History is currently left index finger pad with bread knife. Exam is afebrile. Vital signs noted. +2 cm laceration on left finger pad running horizontally, no active bleeding. Medical Decision Making: Laceration repair. Outpatient wound care. Discharge. Other additions or changes: [None] Procedures <PASCUAL Holley - Last Filed: 10/26/23 12:04> Lacerations left index finger: Length: 0.79 in Depth: Sub Q Shape: Linear Prep: Sterile Conditions Laceration repair: Irrigated, Lidocaine and Local Irrigated (ml): 50 Number of Sutures/Thomas: 4 Suture Information: Ethilon and 5-0 Discharge Plan Triage Chief Complaint: Laceration ED Midlevel Provider: Sally Booth ED Provider: Binu Mendoza Dx/Rx/DC Orders Clinical Impression: Laceration of left index finger Instructions: ED Laceration Extremity Prescriptions: No Action prenat.vits,bhavesh,oxq-etzm-eaulj Tablet 1 tab PO DAILY docusate sodium [Colace] 100 mg capsule 100 mg PO DAILY norethindrone (contraceptive) 0.35 mg tablet 0.35 mg PO DAILY 90 Days Qty: 90 4RF ibuprofen 800 mg tablet 800 mg PO Q8H PRN (Reason: pain) Qty: 30 0RF Primary Care Provider: Tish Valdes Referrals: Tish Valdes MD [Primary Care Provider] - Activity Restrictions/Additional Instructions: Keep area clean and have stitches removed in 7 days. Be reevaluated if any signs of infection develop such as redness, swelling, pus or fever. Disposition Disposition: Home, Self Care Discharge Date/Time: 10/26/23 12:10
--- OUTSIDE RECORDS SUMMARY | 2023-10-26 11:46 | XMS RPT_ITS | CCD ---
Author Name Unknown Address [facility] [place] [address] Organization [facility] Care Team Providers Care Crystalizer Tender Name Role Phone MARCE ALEXANDER Primary Care Unavailable RUKHSANA GARCÍA Referring Unavailable ROSALINDA MARTÍNEZ Attending Unavailable JUAN WOOD Attending Unavailable JUAN WOOD Referring Unavailable MARCE ALEXANDER Primary Care Unavailable MARCE ALEXANDER Primary Care Unavailable RUKHSANA GARCÍA Referring Unavailable PORTER PRINGLE Attending Unavailable Results Test Name Value Interpretation Reference Range Facil ity Encounters Encounter Date Encounter Type Care Provider Facility Start: 11-19-2022 End: 11-19-2022 ambulatory MARCE ALVAREZConnor [facility] Start: 11-07-2022 End: 11-07-2022 ambulatory JUAN WOOD [facility] Start: 11-07-2022 End: 11-07-2022 ambulatory EFOMARONGBE B CATHERINE [facility] Payers Date Payer Category Payer Unknown [id number] [id number] 1992 Unknown [id number] [id number]. [id number] 1992 Unknown [id number] [id number]. [id number] Unknown [id number] Summary Purpose Family History No Family History Records Found Advance Directives No Advanced Directives Records Found Additional Source Comments INFORMATION SOURCE (unrecogn ized section and content) FOR RECORDS PERTAINING TO PATIENTS WHO ARE OR HAVE BEEN ENROLLED IN A CHEMICAL DEPENDENCY/SUBSTANCEABUSE PROGRAM, SOME INFORMATION MAY BE OMITTED. This clinical summary was aggregated from multiple sources. Caution should be exercised in using it in the provision of clinical care. This summary normalizes information from multiple sources, and as a consequence, information in this document may materially change the coding, format and clinical context of patient data. In addition, data may be omitted in some cases. CLINICAL DECISIONS SHOULD BE BASED ON THE PRIMARY CLINICAL RECORDS. [facility]. provides no warranty or guarantee of the accuracy or completeness of information in this document.
[2023-10-26 12:08] VITALS: BP 118/64; PULSE 59; RESP 16; TEMP 36.6; O2SAT 100
[2023-10-26] MEDS: Lidocaine 1% (20 ml mdv) 20 ML Vial INFILT (12:10)
== END 2023-10-26 12:10 | disposition home or self-care (01) ==
LOC: ED 11:44
PROVIDERS: Emergency Provider Emergency Medicine; PCP Internal Medicine; Visit Provider Emergency Medicine
DX: S61.211A Laceration without foreign body of left index finger without damage to nail, initial encounter (principal); W26.0XXA Contact with knife, initial encounter
CPT/HCPCS: 12001; 99283

== ENCOUNTER 2024-01-09 07:50 | Outpatient (CLI) | payer OTHER, SELFPAY | END 2024-01-09 08:00 | disposition home or self-care (01) | LOC: WPOUT 08:00 → WP 08:01 | PROVIDERS: PCP Internal Medicine; Referring Provider Obstetrics & Gynecology; Visit Provider Obstetrics & Gynecology | DX: Z39.1 Encounter for care and examination of lactating mother (principal) ==

== ENCOUNTER → 2024-07-16 | Outpatient (CLI) | payer OTHER, SELFPAY ==
[2024-07-19 05:07] LABS: Chlamydia By Nucleic Acid AMP Negative (Negative); Gonococcus By Nucleic Acid AMP Negative (Negative)
== END | disposition home or self-care (01) ==
LOC: BWCLAB 09:54
PROVIDERS: PCP Internal Medicine; Referring Provider Advanced Practice Midwife; Visit Provider Advanced Practice Midwife
DX: O99.210 Obesity complicating pregnancy, unspecified trimester (principal); Z3A.00 Weeks of gestation of pregnancy not specified; O09.90 Supervision of high risk pregnancy, unspecified, unspecified trimester
CPT/HCPCS: 87086; 87491; 87591

== ENCOUNTER → 2024-08-12 | Outpatient (CLI) | payer OTHER, SELFPAY ==
[2024-08-12 12:17] LABS: Absolute Lymphocyte Count 1.83 X10^3/uL (0.83-4.51); Absolute Neutrophil Count 2.3 X10^3/uL (2.0-7.7); Basophil# 0.02 X10^3/uL; Basophil% 0.4 % (0-1); Eosinophil# 0.15 X10^3/uL; Eosinophils% 3.1 % (0-5); Hematocrit 42.3 % (37-47); Hemoglobin 13.6 g/dL (12.0-15.0); Lymphocyte # 1.83 X10^3/ul (0.83-4.51); Lymphocyte % 38.4 % (19-41); Mean Corp Hgb Conc 32.2 g/dL (32-36); Mean Corpuscular Volume 93.2 fL (81-99); Mean Platelet Vol. 8.9 fl (6.2-12.0); Monocyte# 0.43 X10^3/uL; NRBC Flagged by Analyzer 0 % (0-5); Neutrophil # 2.32 X10^3/uL (2.7-7.7); Neutrophil % 48.7 % (47-70); Platelet Count 336 K/mm3 (150-450); RBC Distribution Width CV 13.6 % (11.6-14.6); RBC Distribution Width SD 46.2 fl (35.1-43.9); Red Blood Count 4.54 M/mm3 (4.2-5.4); White Blood Count 4.8 K/mm3 (4.4-11.0)
[2024-08-12 12:56] LABS: Hemoglobin A1c 5.1 % (3.8-5.6)
[2024-08-12 13:07] LABS: HIV - WCH Non-Reactive (Nonreactive); Hepatitis B Surface Antigen Non-Reactive (Nonreactive); Hepatitis C Antibody Non-Reactive (Nonreactive); Rubella IgG Reactive (Nonreactive); Syphilis Antibodies Non-reactive
== END | disposition home or self-care (01) ==
LOC: BWCLAB 09:31
PROVIDERS: PCP Internal Medicine; Referring Provider Advanced Practice Midwife; Visit Provider Advanced Practice Midwife
DX: O99.210 Obesity complicating pregnancy, unspecified trimester (principal); Z3A.00 Weeks of gestation of pregnancy not specified
CPT/HCPCS: 36415; 83036; 85025; 86703; 86762; 86780; 86803; 86850; 86900; 86901; 87340

== ENCOUNTER 2024-09-10 05:57 | Day surgery (SDC) | payer OTHER, SELFPAY ==
[2024-09-10] VITALS (9 sets, daily range): BP systolic 113–125; BP diastolic 61–84; PULSE 63–108; RESP 16; TEMP 36.1–37.3; O2SAT 94–100; BMI 30.9
[2024-09-10] MEDS: Doxycycline 100 MG CAPSULE PO (06:42)
--- NOTE | 2024-09-10 07:22 | PCM.PRE.AN2 ---
ASA Classification* ASA Classification ASA Classification: 2 Assessment & Plan Anesthesia* Anesthesia Assessment Anesthesia Assessment: Discussed sedation and/or anesthesia options, risks, benefits, and alternatives with patient/parents/legal guardian/POA. Questions invited. The patient/parents/legal guardian/POA seems to understand and agrees to proceed with anesthesia plan. Reviewed the physical assessment, medical history, allergy history and patient home medications list prior to surgery/procedure/anesthetic and documented any changes. Performed airway and anesthesia risk assessments. Anesthesia Type Anesthesia Type: MAC History Source History Obtained from:: Patient and Chart Anesthesia Focused Assessment* Temperature: 99.1 F Pulse Rate: 101 Blood Pressure: 115/84 Respiratory Rate: 16 Pulse Ox: 100 Oxygen Delivery Method: Room Air Airway Assessment Mouth opens: 2 cm Mallampati Score: II Teeth Condition: Lower (Left lower implant. It is tight.) Neck Range of motion (ROM): Full ROM Focused Labs Anesthesia Preop lab: CBC WBC 4.8 K/mm3 (4.4-11.0) 08/12/24 09:31 RBC 4.54 M/mm3 (4.2-5.4) 08/12/24 09:31 Hgb 13.6 g/dL (12.0-15.0) 08/12/24 09:31 Hct 42.3 % (37-47) 08/12/24 09:31 Plt Count 336 K/mm3 (150-450) 08/12/24 09:31 CHEMISTRY Potassium 4.3 mmol/L (3.5-5.1) 05/16/23 07:29 Sodium 140 mmol/L (136-145) 05/16/23 07:29 Phosphorus 3.0 mg/dL (2.5-4.9) 05/16/23 07:29 BUN 18 mg/dL (7-18) 05/16/23 07:29 Creatinine 0.88 mg/dL (0.55-1.02) 05/16/23 07:29 Glucose 77 mg/dL (74-106) 05/16/23 07:29 TSH 0.88 uIU/mL (0.358-3.74) 03/26/21 14:18 COAG Tst Clinic Negative 06/07/20 06:54 Pre-Assessment Diagnosis/Proposed Procedure Planned Operative Procedure(s): SUCTION D&C Anesthesia History 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 When Was Last Pacemaker Check QUESTION #4 FULL TEXT: You/Your Family Experience fever (hyperthermia) with Anesthesia Last Oral Intake Last Oral intake: Last Oral Intake NPO since 22:00 09/10/24 06:36 Meds taken in AM with sips of water? Meds patient instructed to take am of surgery Any additional information?: Yes Meds taken in AM with sips of water?: Yes PONV PONV - lead burner supervisor: PONV - lead burner supervisor Female Yes 09/09/24 12:26 HX of Motion Sickness No 09/09/24 12:26 HX of N/V After Surgery No 09/09/24 12:26 Non-Smoker Yes 09/09/24 12:26 Duration of Surgery greater No 09/09/24 12:26 than 60 minutes Number of Risk Factors 2 09/09/24 12:26 PONV Score Moderate Risk 09/09/24 12:26 Height & Weight Height & Weight: Anesthesia: Height & Weight Height 5 ft 9 in 09/10/24 06:36 Weight: 95 kg 09/10/24 06:36 Body Mass Index (BMI) 30.9 09/10/24 06:36 Respiratory Assessment Respiratory Assessment - lead burner supervisor: Respiratory Tract Infection Hx - lead burner supervisor Hx Respiratory Tract Infection No 09/09/24 12:26 STOP Sleep Apnea STOP Sleep Apnea - lead burner supervisor: STOP Sleep Apnea - lead burner supervisor Hx Hypertension No 09/09/24 12:26 Hx Sleep Apnea No 09/09/24 12:26 CPAP BIPAP Do you snore loudly (louder No 09/09/24 12:26 than talking or can be heard Do you often feel tired/ No 09/09/24 12:26 fatigued/ sleepy during daytime? Has anyone observed you stop No 09/09/24 12:26 breathing during sleep? STOP Results Negative 09/09/24 12:26 QUESTION #5 FULL TEXT : Do you snore loudly (louder than talking or can be heard through closed doors)? 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 Specify any problems Hx of Preganancy in last 3 Yes 09/09/24 12:26 Months Nurse Filling Out Transfusion DSCHRIBER 09/09/24 12:26 & Questions: Date: 09/09/24 09/09/24 12:26 Time: 12:27 09/09/24 12:26 Patient unable to answer at this time (ie. confused, unrespo /Reproduction History /Reproductive History - lead burner supervisor: /Reproductive Hx- lead burner supervisor Hx Now Yes 09/09/24 12:26 Gestational Age (in weeks): EDC: Hx Hx Para Hx Section SAB No 09/09/24 12:26 Active Medications Active Medications: Current Medications Generic Name Dose Route Start Last Admin Trade Name Freq PRN Reason Stop Dose Admin Doxycycline Monohydrate 100 mg 09/10/24 15:00 09/10/24 06:42 Doxycycline 100 Mg Capsule PO 09/10/24 15:01 100 mg PREOP ONE Administration PFSH Medical History Wears contact lenses Wears glasses Depression Anxiety Vaso vagal episode Heartburn Non-smoker Abnormal chromosomal and genetic finding on screening mother Preventative health care Seasonal allergies history of eyelid repair History of ovarian cyst Home Medications ?Medication ?Instructions ?Recorded ?Last Taken ?Type multivit-min no.71-iron fum 28 1 cap PO DAILY 07/09/24 Unknown History mg-folate no.1 1 mg-dha 300 mg capsule (PNV-[place]) docusate sodium 100 mg capsule 100 mg PO QDAY 07/16/24 Unknown History (Colace) hydroxyzine HCl 25 mg tablet 25 mg PO TID PRN anxiety 09/09/24 Unknown History sertraline 25 mg tablet 25 mg PO QHS 09/09/24 Unknown History Allergy/AdvReac Type Severity Reaction Status Date / Time No Known Allergies Allergy Verified 09/10/24 06:35 Family History Sister Deafness Cleft lip and cleft palate Grandmother Thyroid disorder Diabetes Kidney disease Brain aneurysm Father Advanced cirrhosis of liver Surgical History History of ptosis repair History of unilateral fallopian tube excision Social History adopted: No household members: spouse and children housing: house number of children: 1 current occupational status: employed current occupation: [employer] current occupational exposures/hazards: No pets and animals: Yes pets and animals: dog(s) history of recent travel: Yes ([place], [place]) out of state: Yes out of country: No sexually active: Yes Smoking Status: Never smoker alcohol intake: former details: socially prior to substance use type: does not use well-balanced diet: daily or most days caffeine: No eating out: rarely or never during the past year weight has: remained stable what type of physical activity do you participate in: walking frequency: daily duration: 15-30 minutes/day tramaine/roman catholic: Restorationist seatbelt use: always do you feel safe at home: Yes 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
[2024-09-10 07:25] LABS: Hematocrit 39.3 % (37-47); Hemoglobin 13.2 g/dL (12.0-15.0); Mean Corp Hgb Conc 33.6 g/dL (32-36); Mean Corpuscular Hgb 30.6 pg (27.0-32.0); Mean Platelet Vol. 8.6 fl (6.2-12.0); Platelet Count 280 K/mm3 (150-450); RBC Distribution Width CV 12.8 % (11.6-14.6); RBC Distribution Width SD 42.8 fl (35.1-43.9); Red Blood Count 4.32 M/mm3 (4.2-5.4); White Blood Count 4.3 K/mm3 (4.4-11.0)
--- NOTE | 2024-09-10 07:29 | HP.PCM_ITS ---
History and Physical Date of Admission: 09/10/24 Intake Vital Signs 08/12/2408:54 08/20/2414:46 09/07/2512:50 09/07/2512:53 Height 5 ft 9 in 5 ft 9 in 5 ft 9 in 5 ft 9 in Weight: 210 lb 6 oz BMI 31.0 BP 130/89 H Intake Visit Reasons: 16 wk ob Shingle Packer Required: No Is patient in pain?: No Allergies No Known Allergies Allergy (Verified 09/07/24 13:50) Medications ?Medication ?Instructions ?Recorded ?Confirmed ?Type multivit-min no.71-iron fum 28 cap PO 07/09/24 09/07/24 History mg-folate no.1 1 mg-dha 300 mg capsule (PNV-[place]) docusate sodium 100 mg capsule 100 mg PO QDAY 07/16/24 09/07/24 History (Colace) sertraline 25 mg tablet 25 mg PO DAILY #30 tabs 08/26/24 09/07/24 Rx Last Menstrual Period: 05/18/24 Zika: Zika virus screening: Negative : No PFSH PFSH Medical History Abnormal chromosomal and genetic finding on screening mother Preventative health care Seasonal allergies history of eyelid repair History of ovarian cyst Surgical History History of ptosis repair History of unilateral fallopian tube excision Family History Sister Deafness Cleft lip and cleft palateGrandmother Thyroid disorder Diabetes Kidney disease Brain aneurysmFather Advanced cirrhosis of liver Social History adopted: No household members: spouse and children housing: house number of children: 1 current occupational status: employed current occupation: [employer] current occupational exposures/hazards: No pets and animals: Yes pets and animals: dog(s) [place] of state: Yes out of country: No sexually active: Yes Smoking Status: Never smoker alcohol intake: former details: socially prior to substance use type: does not use well-balanced diet: daily or most days caffeine: No eating out: rarely or never during the past year weight has: remained stable what type of physical activity do you participate in: walking frequency: daily duration: 15-30 minutes/day tramaine/baptist: Alevism seatbelt use: always do you feel safe at home: Yes 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 Date Name GA/Weeks Outcome Route Bth Weight Gen Labor Lgth Anesthesia Del Locatn Provider FOB 02/14/23 Marc 39 live - full term 8lbs 4oz Male epidural WC Dr. Emery HPI 16 wk ob Details: INOCENCIA CORRIGAN is a 34 year old @ 16 week gestation who presented for routine OB visit and review of most recent NIPT showing monosomy X. Upon ultrasound exam it was noted that her fetus was demised and measuring 13 weeks 4 days. The decision was made to proceed with a D&E OB Visit NATE Calculator Estimated Delivery Date Method Current WG Current Estimate 02/22/25 LMP (Certain) 16w 0d Other Estimates 02/27/25 Ultrasound #1 15w 2d Expected Delivery Route/Plan Labor Preferences- CB/BF classes: [] labor support person: [] labor intervention preferences: [] pain management options preferred: [] cut cord/dad catch: [] : [] PP control planned: [] discussed possible routes of delivery and associated risks: [] special requests: [] Specific Issue/Plans Covid status: [] Flu vaccine: given Tdap vaccine: [] Rhogam: [] LARC form signed: [] Problem list reviewed and updated with the most current plan of care details and appropriate orders placed. Relevant counseling for the gestational age provided. Continue routine care and follow up unless otherwise noted in visit notes/problem list details Initial Weight: 205 lb Date -?-?-?-?-?-?-?-?-?-?-?-?- EGA Weight BP Urine Prot -?-?-?-?-?-?-?-?-?-?-?-?- Glucose FHR FuHt Pres Dilation -?-?-?-?-?-?-?-?-?-?-?-?- Effaced St Visit Note 07/16/24-?-?-?-?-?-?-?-?-?-?-?-?- 8w 3d 205 lb(+0 oz) 123/83 -?-?-?-?-?-?-?-?-?-?-?-?- 175 -?-?-?-?-?-?-?-?-?-?-?-?- KW- CRL cons with dates. accepts NIPT. 08/12/24-?-?-?-?-?-?-?-?-?-?-?-?- 12w 2d 207 lb(+2 lb) 123/83 Negative -?-?-?-?-?-?-?-?-?-?--?-?- Negative 180 -?-?-?-?-?-?-?-?-?-?-?-?- SM- no vb lof lab today 08/20/24-?-?-?-?-?-?-?-?-?-?-?-?- 13w 3d 208 lb 4 oz(+3 lb 4 oz) 112/76 Negative -?-?-?-?-?-?-?-?-?-?-?-?- Negative 175 -?-?-?-?-?-?-?-?-?-?-?-?- JV- pt is here today to review NIPT finding of monosomy X. She is tearful and wanted to confirm that baby was still viable. we discussed seeking more information from [facility] and the genetic counseling services. 09/07/24-?-?-?-?-?-?-?-?-?-?-?-?- 16w 0d 210 lb 6 oz(+5 lb 6 oz) 130/89 Negative -?-?-?-?-?-?-?-?-?-?-?-?- Negative 0 -?-?-?-?-?-?-?-?-?-?-?-?- JV- no heart tones today. fetus is measuring 13 weeks 4 days. ACOG First Trimester First Trimester: Desire for , Alcohol, Tobacco Cessation, Illicit/Recreational Drug/Substance Use, Intimate Partner Violence, Barriers to care, Unstable Housing, Communication Barriers, Environmental/Work Hazards, Anticipated Course of Care, Toxoplasmosis Precations, Use of Any medications, Sexual activity, Exercise, Dental Care, Sauna/Hot tub use, Seat Belt use, Childbirth classes/Hospital facilities, Travel, Indications for Ultrasound and Screening for Aneuploidy; Discussed Second Trimester Second Trimester: Signs and Symptoms of Labor, Selecting a care provider, Reproductive Life Planning & Contreception, Care Planning, Depression/Anxiety and Intimate Partner Violence; Discussed Tobacco Cessation Third Trimester Third Trimester: Pain Management Plans, Labor support person(s), Immediate Larc, Circumcision preference, Movement Monitoring, Signs and Symptoms of Preeclampsia, Infant Feeding No , [place] Education and Family Medical Leave or Disability Forms ROS Const All systems reviewed & are unremarkable except as noted in H Resp Reports system reviewed and no additional complaints, except as documented and Denies cough GI Reports as per HPI Psych Reports system reviewed and no additional complaints, except as documented Exam Const General: cooperative, healthy appearing, comfortable and no acute distress Resp Effort & Inspection: normal respiratory effort Skin General: no rashes or lesions noted Psych Appearance: grossly normal Speech and Movement: speech and movement normal Results POC Urinalysis 2 Dip (Clinic) Office Urine Glucose Negative Last Edit by May Bustamante on 09/07/24 14:09 Office Urine Protein Negative Last Edit by May Bustamante on 09/07/24 14:09 Coding Level of Care Code Off vis,est,level 4 Diagnoses Abnormal chromosomal and genetic finding on screening mother O28.5 Obesity affecting O99.210 Supervision of high-risk O09.90 16 weeks gestation of Z3A.16 Weeks of gestation: 16 weeks Anxiety F41.9 Family history of VATER complex Z82.79 demise before 20 weeks with retention of fetus O02.1 Assessment and Plan Assessment and Plan (1) Abnormal chromosomal and genetic finding on screening mother: Status: Acute Comment: XO on candace- consult in for MFM and pt to also make a meeting with genetic counselor (2) Obesity affecting : Status: Acute Comment: HgbA1c, encouraged healthy weight gain (3) Supervision of high-risk : Status: Acute Comment: PRR, , NATE 02/22/25, PC Marc, Jere (4) : Status: Acute Qualifiers: Weeks of gestation: 16 weeks Qualified Code(s): Z3A.16 - 16 weeks gestation of Comment: elects NIPT with Gender (5) Anxiety: Status: Acute Comment: tim encouraged counseling (6) Family history of VATER complex: Status: Acute Comment: MFM Normal 24 week echo. sister with VACTERL/VATER (7) demise before 20 weeks with retention of fetus: Status: Acute Orders: Orders POC Urinalysis 2 Dip (Clinic) Today Plan After discussing the patient's diagnosis and treatment plan options, patient wishes to proceed with surgical management. I have discussed with the patient the risks, benefits, and alternatives of the procedure which include but are not limited to risks of anesthesia, bleeding, infection, possible damage to bowel, bladder, or surrounding vasculature which could lead to additional surgery to evaluate any complications. Patient agrees to procedure and wishes to proceed. ACOG/uptodate references given for additional information regarding procedure. plan for suction dilation and curettage under ultrasound guidance.
--- NOTE | 2024-09-10 07:30 | POC_PTH ---
PATIENT: INOCENCIA CORRIGAN LOC: [facility] [place][id number] AGE/SX: 34/F ROOM: RE09/10/[address]: Dr. Mayra Payne DO : 1990 BED: DIS: 09/10/2024 SPEC #: [id number] RECD: 09/10/24 08:05 STATUS: KAYLEE MARCUS #: [id number] SHARON: 09/10/24 07:[address]: Mayra Payne DEPT: SURGICAL PATHOLOGY RECD BY: Guerline Quarles ENTERED: 09/10/24 08:54 SP TYPE: PROD CONC OTHR DR: Dr. Tish Valdes MD Tissues: Product of conception, NOS Procedures: Surgery Specimen Level IV HEADER OPERATION: Dilation and curettage, suction, ANORA TESTING PRE-OP DIAGNOSIS: Abnormal chromosomal and genetic testing finding on screening mother, obesity affecting , supervision of high-risk , , anxiety, family history of VATER complex, demise before 20 weeks with retention of fetus TISSUE SUBMITTED: Products of conception - Anora testing MICROSCOPIC DIAGNOSIS Products of conception, dilation and curettage: Immature placental tissue and tissue (products of conception). See comment. NORA: 09/13/2024 COMMENT Results of Anora studies will be reported as an addendum. MICROSCOPIC DESCRIPTION Slides are reviewed. GROSS DESCRIPTION Received without fixative is one container labeled with the patient's name and designated Products of conception. The specimen consists of multiple fragments of hemorrhagic soft tissue mixed with tissue and blood clot that in aggregate measure 10.0 x 11.0 x 2.0 cm. A portion of tissue is sent for Anora study. Home Paraprofessional sections are submitted in three cassettes. Cassette 3 contains the tissue. NORA. 09/10/2024 TC:5 CPT:28860 ADDENDUM ADDENDUM ADDENDUM ADDENDUM ADDENDUM ADDENDUM ADDENDUM ADDENDUM ADDENDUM ADDENDUM ADDENDUM ADDENDUM ADDENDUM ADDENDUM ADDENDUM 10/29/2024 13:29 ADDENDUM 10/29/2024 13:29 ADDENDUM 10/29/2024 13:29 ADDENDUM 10/29/2024 13:29 ADDENDUM 10/29/2024 13:29 ANORA MICROARRAY CHROMOSOME ANALYSIS WITH PARENTAL SUPPORT RESULT: Abnormal female MICROARRAY RESULT: arr (X) x1 CLINICAL INTERPRETATION: Abnormal result. Monosomy X was detected. Monosomy X, or Waters Syndrome, is a common finding in miscarriage and is found in 1 in 4,000 to 1 in 10,000 female live births. It is most often incompatible with survival, but in liveborns causes syndromic congenital abnormalities and may cause some learning disabilities. Genetic counseling is recommended to discuss the significance of this result. Referral to a local genetic counselor may be considered. Please see complete report in e-chart or EMR
--- NOTE | 2024-09-10 07:30 | DCINST_ITS ---
Discharge Instructions Diet Discharge Diet: No restrictions DC O2, CPAP, BIPAP needs Home O2 Discharge instructions: No Dressing / Incision Discharge Activity: Return to Normal Activity, May Shower and May Take a Tub Bath (after 1 week) May resume sexual activity in: 1-2 weeks Weight Bearing Status: Weight bearing as tolerated Lifting Restrictions: none Dressing / Incision Call your doctor if you observe: Fever of 101 or Higher, Using more than 1 pad per hour, Shortness of breath and Uncontrolled pain Follow Up Care Please Follow Up With: Mayra Payne DO When: Call [phone] to schedule appointment. Test Results: Test results from this visit will be discussed in further detail at your follow- up appointment, if applicable. Discharge Plan Admission Primary Reason for Your Visit: dilation and curettage Attending Provider: Mayra Payne Primary Care Provider: Tish Valdes Instructions Print Language: Serbian Discharge Orders/Prescriptions Prescriptions: New ibuprofen 800 mg tablet 800 mg PO Q8H PRN (Reason: pain) Qty: 30 0RF oxycodone-acetaminophen [Percocet] 5-325 mg tablet 1 tab PO Q4H PRN (Reason: pain) 7 Days Qty: 10 0RF Rx Instructions: 1-2 tabs q 4 hrs as needed for pain Continued PNV-Roosevelt 28-1-300 mg capsule 1 cap PO DAILY docusate sodium [Colace] 100 mg capsule 100 mg PO QDAY sertraline 25 mg tablet 25 mg PO QHS hydroxyzine HCl 25 mg tablet 25 mg PO TID PRN (Reason: anxiety) Referrals / Follow Up: Tish Valdes MD [Primary Care Provider] - Disposition Disposition (needs filled in before D/C Order can be placed): Home, Self Care
[2024-09-10] MEDS: Lubricating Jelly 60 GM Tube 30 GM (07:50)
[2024-09-10] MEDS: Lidocaine 1% (20 ml mdv) 20 ML Vial (07:50)
--- NOTE | 2024-09-10 08:04 | PCM.OPRPT ---
Problems Associated Problem List Diagnoses (1) demise before 20 weeks with retention of fetus: Multi Select Codes Urinary/Genital Urinary/Genital CPT Codes: 52517 Surg Trtmt missed Ab 1TM Operative Report (Standard) Operative Information Date of Procedure: 09/10/24 Pre-Operative Diagnosis: missed , 16 weeks gestation, measuring 13 weeks Post-Operative Diagnosis: missed , 16 weeks gestation, measuring 13 weeks Surgery/Procedure Performed: suction dilation and curettage videotape operator: No Type of Anesthesia: MAC and Topical Anesth RN Documented Start/Stop Times: Operation Date: 09/10/24 07:30 Case Time Into Pre-Op 09/10/24 06:06 Out of Pre-Op 09/10/24 07:31 Anesthesia Start 09/10/24 07:34 Into Room 09/10/24 07:34 Procedure Start 09/10/24 07:49 Procedure End 09/10/24 08:00 Procedure Start Time: 07:49 Procedure Stop Time: 08:00 Select all DRAINS/GRAFTS/IMPLANTS that apply: None Special Medications: methergine ordered Estimated Blood Loss: 50cc Specimen collected: Yes Description of specimen(s) removed: products of conception Description of surgery: Patient was taken to the operating room and placed under MAC local anesthesia. She was prepped and draped in the normal sterile fashion the dorsal lithotomy position. Bladder was drained of clear urine and anterior lip of the cervix was grasped and the uterus sounded to 13 cm. Cervix was progressively dilated to allow passage of a size 12 suction curette. Progressive passes were made removing the retained products of conception without complication and under ultrasound guidance. Sharp curettage confirmed complete removal of the retained products. All instruments were removed from the vagina and excellent hemostasis was noted and the patient was taken to recovery in stable condition. Surgical Findings: 13 week missed Complications Complications: No Admit VTE Documentation VTE Present on Admission: No VTE Mechan Device Prophylaxis: SCD's VTE Pharm Prophylaxis ordered?: No
[2024-09-10] MEDS: Methylergonovine 0.2 MG/ML Ampul IM (08:27)
[2024-09-10] MEDS: Acetaminophen 500 MG Tablet 1000 MG PO (09:08)
--- NOTE | 2024-09-10 09:30 | PCM.POST.ANE ---
Anesthesia: Postop Eval I Current Vital Signs Temperature: 97 F Pulse Rate: 68 Blood Pressure: 113/72 Respiratory Rate: 16 Pulse Ox: 94 Oxygen Delivery Method: Room Air Assessment Airway patent: Yes Spontaneous unlabored respirations: Yes Mental status: Awake and Calm nausea: No Vomiting: No Anesthesia Complication: No Fluid Hydration Crystalloid volume administer (ml): 10 Total IV fluid infused: 10 Progress Note Anesthesia document: Postop Eval 1 completed: Yes
--- NOTE | 2024-09-10 09:32 | POSTOPAN2_ITS ---
Anesthesia Postop Eval I Sum Postop Eval Completion status Anesthesia document: Postop Eval 1 completed: Yes Anesthesia Postop Eval I Summary Anesthesia Postop Eval I Summary: Anesthesia Postop Eval I: Assessment Summary Airway patent Yes 09/10/24 09:30 CUSTOMER SOLUTIONS SPECIALIST.SKOBY Spontaneous unlabored Yes 09/10/24 09:30 CUSTOMER SOLUTIONS SPECIALIST.KAYLEIGH respirations Mental status Awake,Calm 09/10/24 09:30 CUSTOMER SOLUTIONS SPECIALIST.VALENTINOOBAna nausea No 09/10/24 09:30 CUSTOMER SOLUTIONS SPECIALIST.VALENTINOOBAna Vomiting No 09/10/24 09:30 CUSTOMER SOLUTIONS SPECIALIST.KAYLEIGH Anesthesia Postop Eval I: Fluid Summary Crystalloid volume administer 10 09/10/24 09:30 CUSTOMER SOLUTIONS SPECIALIST.SKOBY (ml) Colloids volume administered ( ml) Blood Product volume administered (ml) Total IV fluid infused 10 09/10/24 09:30 CUSTOMER SOLUTIONS SPECIALIST.KAYLEIGH Anesthesia Postop Eval I: Summary Notes Anesthesia Complication No 09/10/24 09:30 CUSTOMER SOLUTIONS SPECIALIST.KAYLEIGH Anesthesia Complication Comment: Post-operative progress note Anesthesia: Postop Eval II Evaluation Mental status: Awake Pain Level: 1 nausea: No Vomiting: No
--- NOTE | 2024-09-10 09:32 | PCM.POSTANE2 ---
Anesthesia Postop Eval I Sum Postop Eval Completion status Anesthesia document: Postop Eval 1 completed: Yes Anesthesia Postop Eval I Summary Anesthesia Postop Eval I Summary: Anesthesia Postop Eval I: Assessment Summary Airway patent Yes 09/10/24 09:30 MEDICAL AFFAIRS MANAGER.SKOBY Spontaneous unlabored Yes 09/10/24 09:30 MEDICAL AFFAIRS MANAGER.KAYLEIGH respirations Mental status Awake,Calm 09/10/24 09:30 MEDICAL AFFAIRS MANAGER.VALENTINOOBAna nausea No 09/10/24 09:30 MEDICAL AFFAIRS MANAGER.VALENTINOOBAna Vomiting No 09/10/24 09:30 MEDICAL AFFAIRS MANAGER.KAYLEIGH Anesthesia Postop Eval I: Fluid Summary Crystalloid volume administer 10 09/10/24 09:30 MEDICAL AFFAIRS MANAGER.SKOBY (ml) Colloids volume administered ( ml) Blood Product volume administered (ml) Total IV fluid infused 10 09/10/24 09:30 MEDICAL AFFAIRS MANAGER.KAYLEIGH Anesthesia Postop Eval I: Summary Notes Anesthesia Complication No 09/10/24 09:30 MEDICAL AFFAIRS MANAGER.KAYLEIGH Anesthesia Complication Comment: Post-operative progress note Anesthesia: Postop Eval II Evaluation Mental status: Awake Pain Level: 1 nausea: No Vomiting: No
[2024-09-12 16:23] LABS: Pathology Specimen OB SEE PATHOLOGY REPORT
== END 2024-09-10 09:50 | disposition home or self-care (01) ==
LOC: SDC 06:00 → AC 06:03
PROVIDERS: PCP Internal Medicine; Referring Provider Obstetrics & Gynecology; Visit Provider Obstetrics & Gynecology
PROC: (CPT 59821; principal; 2024-09-10 07:15)
DX: O02.1 Missed abortion (principal); O99.342 Other mental disorders complicating pregnancy, second trimester; F41.9 Anxiety disorder, unspecified; F32.A Depression, unspecified; Z3A.16 16 weeks gestation of pregnancy; Z79.899 Other long term (current) drug therapy
CPT/HCPCS: 59821; 01965; 85027; 86850; 86900; 86901; 88305; A4216; J2405

== ENCOUNTER → 2025-02-03 | Outpatient (CLI) | payer OTHER, SELFPAY ==
[2025-02-03 17:18] LABS: hCG Titer Quant., Serum 33858 mIU/mL (<9 non-preg)
[2025-02-07 21:07] LABS: Chlamydia By Nucleic Acid AMP Negative (Negative); Gonococcus By Nucleic Acid AMP Negative (Negative)
== END | disposition home or self-care (01) ==
LOC: BWCLAB 13:44
PROVIDERS: PCP Internal Medicine; Referring Provider Advanced Practice Midwife; Visit Provider Advanced Practice Midwife
DX: O09.90 Supervision of high risk pregnancy, unspecified, unspecified trimester (principal); Z3A.00 Weeks of gestation of pregnancy not specified
CPT/HCPCS: 36415; 84702; 87086; 87491; 87591

== ENCOUNTER → 2025-02-10 | Outpatient (CLI) | payer OTHER, SELFPAY ==
--- NOTE | 2025-02-10 15:15 | US_ITS ---
PROCEDURE: TRANSVAGINAL W/PREG US 02/10/2025 REASON FOR EXAM: THREATENED TECHNIQUE: High resolution obstetric ultrasound performed using a 2D transducer. Standard views obtained, including biometry, anatomy survey, and Doppler studies. COMPARISON: None. FINDINGS Intrauterine gestational sac dated 6 weeks and 2 days. Yolk sac measures 0.5 cm. Vandling-rump length measures 0.45 cm dated 6 weeks and 2 days. heart rate is not detected. NATE by ultrasound of 10/04/2025. NATE by LMP of 09/28/2025. Uterus measures 9.2 x 2.4 x 5.7 cm. No fibroids. The cervix is closed. No fluid in the cul-de-sac. The right ovary is not visualized with the region obscured by bowel gas. The left ovary measures 3.6 x 3.8 x 3.5 cm with preserved vascular flow. Left ovarian 2.7 cm cyst. No visualized adnexal masses. US/Transvaginal w/Preg US IMPRESSION: Intrauterine without heart tones. Reading Location: [place] [id number]
[2025-02-10 18:27] LABS: hCG Titer Quant., Serum 47910 mIU/mL (<9 non-preg)
== END | disposition home or self-care (01) ==
PROVIDERS: Obstetrics & Gynecology; PCP Physician Assistant; Referring Provider Advanced Practice Midwife; Visit Provider Advanced Practice Midwife
DX: O20.0 Threatened abortion (principal); Z3A.00 Weeks of gestation of pregnancy not specified
CPT/HCPCS: 36415; 76817; 84702

== ENCOUNTER → 2025-02-15 | Outpatient (CLI) | payer OTHER, SELFPAY ==
--- NOTE | 2025-02-15 12:09 | US_ITS ---
PROCEDURE: TRANSVAGINAL W/PREG US 02/15/2025 REASON FOR EXAM: THREATENED - RESCAN TECHNIQUE: TRANSVAGINAL W/PREG US COMPARISON: February 10, 2025 FINDINGS There is an intrauterine gestational sac with a pole. Mean sac diameter = 1.5 cm, 6 week 2 day, crown-rump length equals 0.29 cm, 6 week 1 day. heart motion is not identified at this time. Yolk sac = 0.29 cm. There is a cyst in the left ovary measuring 2.5 cm. The uterus measures 11.1 x 6.9 x 5.6 cm. There is no uterine fibroid or mass. The cervix appears closed. US/Transvaginal w/Preg US IMPRESSION: Mean sac diameter = 1.5 cm, 6 week 2 day, crown-rump length equals 0.29 cm, 6 w [place]oks[place] 1 day. heart motion is not identified at this time. Continued follow-up is recommended. Reading Location: [place]
== END | disposition home or self-care (01) ==
LOC: US 12:00
PROVIDERS: PCP Physician Assistant; Referring Provider Obstetrics & Gynecology; Visit Provider Obstetrics & Gynecology
DX: O20.0 Threatened abortion (principal); Z3A.00 Weeks of gestation of pregnancy not specified
CPT/HCPCS: 76817

== ENCOUNTER 2025-02-17 10:41 | Day surgery (SDC) | payer OTHER, SELFPAY ==
[2025-02-17] VITALS (7 sets, daily range): BP systolic 99–116; BP diastolic 59–64; PULSE 66–75; RESP 16; TEMP 36.1–36.6; O2SAT 96–100; BMI 30.4
--- NOTE | 2025-02-17 10:53 | HP.PCM.OB_ITS ---
HPI - General HPI Narrative INOCENCIA CORRIGAN, is a 34 y/o who presents to [facility] for a suction dilation and curettage for a missed . This is her second in a row and she is requesting anora testing. Maternal Data Information NATE Calculator Estimated Delivery Date Method Current WG Current Estimate 09/28/25 Ultrasound #1 8w 1d Other Estimates 09/09/25 LMP (Certain) 10w 6d [facility] Medical History (Updated 02/17/25 @ 10:40 by Eliana Ospina LPN) Wears contact lenses Wears glasses Depression Anxiety Vaso vagal episode Heartburn Non-smoker demise before 20 weeks with retention of fetus Abnormal chromosomal and genetic finding on screening mother Preventative health care Seasonal allergies history of eyelid repair History of ovarian cyst Home Medications ?Medication ?Instructions ?Recorded ?Last Taken ?Type multivit-min no.71-iron fum 28 1 cap PO DAILY 07/09/24 Unknown History mg-folate no.1 1 mg-dha 300 mg capsule (PNV-[place]) cholecalciferol (vitamin D3) 25 25 mcg PO QDAY 5 Unknown History mcg (1,000 unit) capsule sertraline 25 mg tablet 50 mg PO QHS 02/16/25 Unknow n History Allergy/AdvReac Type Severity Reaction Status Date / Time No Known Allergies Allergy Verified 02/16/25 11:46 Family History Sister Deafness Cleft lip and cleft palate Grandmother Thyroid disorder hypothyroidism- Maternal Diabetes Kidney disease Brain aneurysm Father Advanced cirrhosis of liver Surgical History (Updated 02/16/25 @ 11:49 by Irais Purcell) S/P dilation and curettage History of ptosis repair History of unilateral fallopian tube excision Social History adopted: No household members: spouse and children housing: house number of children: 1 current occupational status: employed current occupation: [employer] current occupational exposures/hazards: No pets and animals: Yes pets and animals: dog(s) history of recent travel: No ([place], [place]) sexually active: Yes Smoking Status: Never smoker alcohol intake: former details: socially prior to substance use type: does not use well-balanced diet: daily or most days caffeine: No eating out: rarely or never during the past year weight has: remained stable what type of physical activity do you participate in: walking frequency: 3-4 times per week duration: 45-60 minutes/day tramaine/restoration: Spiritism seatbelt use: always do you feel safe at home: Yes additional 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: - 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 Date Name GA/Weeks Outcome Route Bth Weight Gen Labor Lgth Anesthesia Del Locatn Provider FOB 02/14/23 Marc 39 live - full term 8lbs 4oz Male ep idural [facility] Dr. Payne Jere 09/10/24 16 spontaneous JV Delivery Date: 09/10/24 Last Updated by: Myesha Ibrahim RN Measuring 13weeks, D&C Visit Details Expected Delivery Route/Plan Labor Preferences- CB/BF classes: [] labor support person: [] labor intervention preferences: [] pain management options preferred: [] cut cord/dad catch: [] : [] PP control planned: [] discussed possible routes of delivery and associated risks: [] special requests: [] Plans Covid status: [] Flu vaccine: [] Tdap vaccine: [] Rhogam: [] LARC form signed: [] Problem list reviewed and updated with the most current plan of care details and appropriate orders placed. Relevant counseling for the gestational age provided. Continue routine care and follow up unless otherwise noted in visit notes/problem list details OB Flowsheet Initial Weight: 212 lb Date -?-?-?-?-?-?-?-?-?-?-?-?- EGA Weight BP Urine Prot -?-?-?-?-?-?-?-?-?-?-?-?- Glucose FHR FuHt Pres Dilation -?-?-?-?-?-?-?-?-?-?-?-?- Effaced St Visit Note 02/03/25 -?-?-?-?-?-?-?-?-?-?-?-?- 6w 1d 212 lb 4 oz (+4 oz) 128/79 -?-?-?-?-?-?-?-?-?-?-?-?- -?-?-?-?-?-?-?-?-?-?-?-?- KW- CRL not cons with dates. Measuring 0.48cm. did not see heartrate today. HCG done-RTO next week for repeat scan. ROS Constitutional Constitutional: Denies change in weight, fatigue, fever(s), headache(s), poor appetite or weakness Eyes Eyes: Denies blurry vision, change in vision, seeing flashes or spots in vision ENT HEENT: Denies dizziness, headache(s), loss taste/smell or sore throat Cardiovascular Cardiovascular: Denies chest pain, dizziness, dyspnea, irregular heart rhythm, leg edema, palpitations, rapid heart rate or vomiting Respiratory/Chest Respiratory/Chest: Denies chest tightness, cough, dyspnea or breast pain Gastrointestinal Gastrointestinal: Denies abdominal pain, anorexia, constipation, cramping, diarrhea, hemorrhoids, vomiting or weight changes Genitourinary Genitourinary: Denies dysuria, flank pain, genital lesions, genital pain, urinary frequency or urinary urgency Musculoskeletal Musculoskeletal: Denies back pain, difficulty walking, joint pain, limited range of motion, muscle cramps or numbness Integumentary Integumentary: Denies lesions or unusual bruising Neurologic Neurologic: Denies abnormal movements, abnormal speech, dizziness, numbness, seizure-like activity or syncope Psychiatric Psychiatric: Denies anxiety, behavioral changes, change in appetite, change in libido, cognitive impairment, confusion, depression, difficulty concentrating, hallucinations or suicidal thoughts Endocrine Endocrinology: Denies excessive sweating, polydipsia or polyuria Hematologic/Lymphatic Hematologic/Lymphatic: Denies easy bleeding, easy bruising or lymphadenopathy Allergic/Immunologic Allergic/Immunologic: Denies itchy eyes, lip swelling, seasonal rhinorrhea, rhinitis, throat swelling, tongue swelling, eczemia, wheezing or asthma Physical Exam Const alert, oriented x3, no apparent distress and healthy appearing General Appearance: cooperative; Negative for anxious HEENT normocephalic Face and Sinus: normal facial exam Eyes EOMs intact bilaterally and no scleral icterus General Eye: normal appearance of both eyes Neck full ROM and supple Lymph Lymphatic: no lymphadenopathy noted Resp normal respiratory effort Effort and Inspection: able to speak in complete sentences Cardio regular rate GI soft to palpation and non-tender Palpation: soft; Negative for tender Back/Spine no CVA tenderness Extremity normal to inspection, full ROM and no clubbing, cyanosis or edema General Extremity: Negative for calf tenderness or edema Skin Lesions: no lesions Rashes: no rashes Psych mental status grossly normal Labs Labs Labs: Blood Type O POSITIVE Antibody Screen NEGATIVE Hct 39.3 % (37-47) Hgb 13.2 g/dL (12.0-15.0) Obstetrics Ultrasound Syphilis Total Ab Non-reactive VZV IgG Antibody 605 index (Immune >165) Rubella IgG Antibody Reactive (Nonreactive) Hep Bs Antigen Non-Reactive (Nonreactive) Hepatitis C Antibody Non-Reactive (Nonreactive) Chlamydia DNA ([facility]) Negative (Negative) N.gonorrhoeae DNA ([facility]ER) Negative (Negative) HIV 1&2 Antibody Non-Reactive (Nonreactive) Glucose 1 Hr 50 gm 88 mg/dL (70-140) Rhogam given: No Assessment & Plan (1) Missed : PLAN: Plan After discussing the patient's diagnosis and treatment plan options, patient wishes to proceed with surgical management. I have discussed with the patient the risks, benefits, and alternatives of the procedure which include but are not limited to risks of anesthesia, bleeding, infection, possible damage to bowel, bladder, or surrounding vasculature which could lead to additional surgery to evaluate any complications. Patient agrees to procedure and wishes to proceed. plan for suction dilation and curettage with anora testing
[2025-02-17] MEDS: Lactated Ringers 1,000 ML 15 ML IV (11:00)
[2025-02-17] MEDS: Doxycycline 100 MG CAPSULE PO (11:15)
--- NOTE | 2025-02-17 11:41 | PRE.ANES_ITS ---
ASA Classification* ASA Classification ASA Classification: 2 (depression) Assessment & Plan Anesthesia* Anesthesia Assessment Anesthesia Assessment: Discussed sedation and/or anesthesia options, risks, benefits, and alternatives with patient/parents/legal guardian/POA. Questions invited. The patient/parents/legal guardian/POA seems to understand and agrees to proceed with anesthesia plan. Reviewed the physical assessment, medical history, allergy history and patient home medications list prior to surgery/procedure/anesthetic and documented any changes. Performed airway and anesthesia risk assessments. Anesthesia Type Anesthesia Type: General History Source History Obtained from:: Patient and Chart Anesthesia Focused Assessment* Temperature: 97.9 F Pulse Rate: 74 Blood Pressure: 116/64 Respiratory Rate: 16 Pulse Ox: 100 Oxygen Delivery Method: Room Air Airway Assessment Mouth opens: >3 cm Mallampati Score: II Teeth Condition: Intact Neck Range of motion (ROM): Full ROM Labs Anesthesia Preop lab: CBC WBC 4.3 K/mm3 (4.4-11.0) L 09/10/24 06:09/10/24 RBC 4.32 M/mm3 (4.2-5.4) 09/10/24 06:30 09/10/24 Hgb 13.2 g/dL (12.0-15.0) 09/10/24 06:30 09/10/24 Hct 39.3 % (37-47) 09/10/24 06:30 09/10/24 Plt Count 280 K/mm3 (150-450) 09/10/24 06:30 09/10/24 CHEMISTRY Potassium 4.3 mmol/L (3.5-5.1) 05/16/23 07:05/16/23 Sodium 140 mmol/L (136-145) 05/16/23 07:05/16/23 Phosphorus 3.0 mg/dL (2.5-4.9) 05/16/23 07:05/16/23 BUN 18 mg/dL (7-18) 05/16/23 07:05/16/23 Creatinine 0.88 mg/dL (0.55-1.02) 05/16/23 07:05/16/23 Glucose 77 mg/dL (74-106) 05/16/23 07:05/16/23 TSH 0.88 uIU/mL (0.358-3.74) 03/26/21 14:18 COAG HCG, Quant 36539 mIU/mL (<9 non-preg) H 02/10/25 16:09 Tst Clinic Negative 06/07/20 06:54 06/07/20 Pre-Assessment Diagnosis/Proposed Procedure Planned Operative Procedure(s): SUCTION D&C Anesthesia History 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 When Was Last Pacemaker Check QUESTION #4 FULL TEXT: You/Your Family Experience fever (hyperthermia) with Anesthesia Last Oral Intake Last Oral intake: Last Oral Intake NPO since 05:00 02/17/25 11:16 Meds taken in AM with sips of No 02/17/25 11:16 water? 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 Female Yes 02/16/25 11:47 HX of Motion Sickness No 02/16/25 11:47 HX of N/V After Surgery No 02/16/25 11:47 Non-Smoker Yes 02/16/25 11:47 Duration of Surgery greater No 02/16/25 11:47 than 60 minutes Number of Risk Factors 2 02/16/25 11:47 PONV Score Moderate Risk 02/16/25 11:47 Height & Weight Height & Weight: Anesthesia: Height & Weight Height 5 ft 9 in 02/17/25 11:16 Weight: 93.6 kg 02/17/25 11:16 Body Mass Index (BMI) 30.4 02/17/25 11:16 Respiratory Assessment Respiratory Assessment - tempering oven operator: Respiratory Tract Infection Hx - tempering oven operator Hx Respiratory Tract Infection No 02/16/25 11:47 STOP Sleep Apnea STOP Sleep Apnea - tempering oven operator: STOP Sleep Apnea - tempering oven operator Hx Hypertension No 02/16/25 11:47 Hx Sleep Apnea No 02/16/25 11:47 CPAP No 02/16/25 11:47 BIPAP Do you snore loudly (louder No 02/16/25 11:47 than talking or can be heard Do you often feel tired/ No 02/16/25 11:47 fatigued/ sleepy during daytime? Has anyone observed you stop No 02/16/25 11:47 breathing during sleep? STOP Results Negative 02/16/25 11:47 QUESTION #5 FULL TEXT : Do you snore loudly (louder than talking or can be heard through closed doors)? 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 Specify any problems Hx of Preganancy in last 3 Yes 02/16/25 11:47 Months Nurse Filling Out Transfusion DSCHRIBER 02/16/25 11:47 & Questions: Date: 02/16/25 02/16/25 11:47 Time: 11:48 02/16/25 11:47 Patient unable to answer at this time (ie. confused, unrespo /Reproduction History /Reproductive History - tempering oven operator: /Reproductive Hx- tempering oven operator Hx Now Yes 02/16/25 11:47 Gestational Age (in weeks): EDC: Hx Hx Para Hx Section SAB No 02/16/25 11:47 Active Medications Active Medications: Current Medications Generic Name Dose Route Start Last Admin Trade Name Freq PRN Reason Stop Dose Admin Lactated Ringer's 1,000 mls @ 15 mls/hr 02/17/25 11:00 IV .Q48H SELINA PFSH Medical History (Updated 02/17/25 @ 10:40 by Eliana Ospina LPN) Wears contact lenses Wears glasses Depression Anxiety Vaso vagal episode Heartburn Non-smoker demise before 20 weeks with retention of fetus Abnormal chromosomal and genetic finding on screening mother Preventative health care Seasonal allergies history of eyelid repair History of ovarian cyst Home Medications ?Medication ?Instructions ?Recorded ?Last Taken ?Type multivit-min no.71-iron fum 28 1 cap PO DAILY 07/09/24 Unknown History mg-folate no.1 1 mg-dha 300 mg capsule (PNV-[place]) cholecalciferol (vitamin D3) 25 25 mcg PO QDAY 5 Unknown History mcg (1,000 unit) capsule sertraline 25 mg tablet 50 mg PO QHS 02/16/25 Unknow n History Allergy/AdvReac Type Severity Reaction Status Date / Time No Known Allergies Allergy Verified 02/16/25 11:46 Family History Sister Deafness Cleft lip and cleft palate Grandmother Thyroid disorder hypothyroidism- Maternal Diabetes Kidney disease Brain aneurysm Father Advanced cirrhosis of liver Surgical History (Updated 02/16/25 @ 11:49 by Irais Purcell) S/P dilation and curettage History of ptosis repair History of unilateral fallopian tube excision Social History adopted: No household members: spouse and children housing: house number of children: 1 current occupational status: employed current occupation: [employer] current occupational exposures/hazards: No pets and animals: Yes pets and animals: dog(s) history of recent travel: No ([place], [place]) sexually active: Yes Smoking Status: Never smoker alcohol intake: former details: socially prior to substance use type: does not use well-balanced diet: daily or most days caffeine: No eating out: rarely or never during the past year weight has: remained stable what type of physical activity do you participate in: walking frequency: 3-4 times per week duration: 45-60 minutes/day tramaine/islam: Voodoo seatbelt use: always do you feel safe at home: Yes additional 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: - 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 Physical Exam Const alert, oriented x3 and average body habitus Resp normal respiratory effort, normal air movement and clear to auscultation bilaterally Cardio regular rate, regular rhythm, no murmurs and diaphoretic
[2025-02-17 11:59] LABS: Hematocrit 40.8 % (37-47); Mean Corp Hgb Conc 34.3 g/dL (32-36); Mean Corpuscular Hgb 31.1 pg (27.0-32.0); Mean Corpuscular Volume 90.7 fL (81-99); Mean Platelet Vol. 8.6 fl (6.2-12.0); Platelet Count 297 K/mm3 (150-450); RBC Distribution Width CV 12.8 % (11.6-14.6); RBC Distribution Width SD 42.1 fl (35.1-43.9); White Blood Count 4.9 K/mm3 (4.4-11.0)
--- NOTE | 2025-02-17 12:15 | POC_PTH ---
PATIENT: INOCENCIA CORRIGAN LOC: [facility] [place] U#:[id number] AGE/SX: 34/F ROOM: RE02/17/[address]: Dr. Mayra Payne DO : 1990 BED: DIS: 02/17/2025 SPEC #: [id number] RECD: 02/17/25 12:58 STATUS: KAYLEE RENataly #: [id number] SHARON: 02/17/25 12:[address]: Mayra Payne DEPT: SURGICAL PATHOLOGY RECD BY: Marcellus Cabrera ENTERED: 02/17/25 14:14 SP TYPE: PROD CONC OTHR DR: PASCUAL Muro Tissues: A - Product of conception, NOS Procedures: Surgery Specimen Level IV HEADER OPERATION: D&C, suction, Anora testing PRE-OP DIAGNOSIS: Missed TISSUE SUBMITTED: A- Products of conception MICROSCOPIC DIAGNOSIS A. uterine contents, dilation and suction curettage: * Acutely inflamed and extensively necrotic decidua, immature placental villi, and clotted blood, consistent with products of conception from a missed MICROSCOPIC DESCRIPTION Slides are reviewed. GROSS DESCRIPTION A. ?Received fresh for Anora collection labeled with the patient's name and date of .? Designated as products of conception is a 7.0 x 5.0 x 1.0 cm aggregate of sewell-pink to red soft and papillomatous tissue.? Chorionic villi are identified and collected for Anora testing.? Pipe Testing Technician sections are submitted in 3 cassettes. [place] 02/17/2025 CPT:63340 ADDENDUM ADDENDUM ADDENDUM ADDENDUM ADDENDUM ADDENDUM ADDENDUM ADDENDUM ADDENDUM ADDENDUM ADDENDUM ADDENDUM ADDENDUM ADDENDUM 03/03/2025 10:25 ADDENDUM 03/03/2025 10:25 ADDENDUM 03/03/2025 10:25 ADDENDUM 03/03/2025 10:25 ADDENDUM 03/03/2025 10:25 ANORA MICROARRAY CHROMOSOME ANALYSIS WITH PARENTAL SUPPORT RESULT: Abnormal male MICROARRAY RESULT: arr (10)x3,(15)x3 CLINICAL INTERPRETATION: Abnormal result. Multiple chromosome abnormalities were identified. Trisomy 10 and Trisomy 15, both of maternal origin, were detected. Multiple aneuploidy is typically incompatible with survival and is found in approximately 5% of all miscarriages. It accounts for about 8% of chromosome abnormalities detected in miscarriage specimens. Genetic counseling is recommended to discuss the significance of this result. Referral to a local genetic counselor may be considered. Maternal cell contamination has been ruled out. Please see complete report in e-chart or EMR
--- NOTE | 2025-02-17 12:28 | PCM.DC ---
Discharge Instructions Diet Discharge Diet: No restrictions DC O2, CPAP, BIPAP needs Home O2 Discharge instructions: No Dressing / Incision Discharge Activity: Return to Normal Activity, May Shower and May Take a Tub Bath (after 1 week) May resume sexual activity in: 1-2 weeks Weight Bearing Status: Weight bearing as tolerated Lifting Restrictions: none Dressing / Incision Call your doctor if you observe: Fever of 101 or Higher, Using more than 1 pad per hour, Shortness of breath and Uncontrolled pain Follow Up Care Please Follow Up With: Mayra Payne DO When: Call [phone] to schedule appointment. Test Results: Test results from this visit will be discussed in further detail at your follow-up appointment, if applicable. Discharge Plan Admission Primary Reason for Your Visit: dilation and curettage Attending Provider: Mayra Payne Primary Care Provider: Douglas Lares Instructions Print Language: Armenian Discharge Orders/Prescriptions Prescriptions: No Action PNV-[place] 28-1-300 mg capsule 1 cap PO DAILY cholecalciferol (vitamin D3) 25 mcg (1,000 unit) capsule 25 mcg PO QDAY sertraline 25 mg tablet 50 mg PO QHS Referrals / Follow Up: Douglas Lares, PA [Primary Care Provider] - Disposition Disposition (needs filled in before D/C Order can be placed): Home, Self Care
[2025-02-17] MEDS: Lidocaine 1% (20 ml mdv) 20 ML Vial (12:38)
--- NOTE | 2025-02-17 12:54 | PCM.POST.ANE ---
Anesthesia: Postop Eval I Current Vital Signs Temperature: 97 F Pulse Rate: 75 Blood Pressure: 109/59 Respiratory Rate: 16 Pulse Ox: 96 Oxygen Delivery Method: Room Air Assessment Airway patent: Yes Spontaneous unlabored respirations: Yes Mental status: Awake and Calm nausea: No Vomiting: No Anesthesia Complication: No Fluid Hydration Crystalloid volume administer (ml): 800 Total IV fluid infused: 800 Progress Note Anesthesia document: Postop Eval 1 completed: Yes
--- NOTE | 2025-02-17 13:01 | OP.PCM_ITS ---
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: No Type of Anesthesia: MAC/Supplemental RN Documented Start/Stop Times: Operation Date: 02/17/25 12:15 Case Time Into Pre-Op 02/17/25 10:58 Out of Pre-Op 02/17/25 12:15 Anesthesia Start 02/17/25 12:25 Into Room 02/17/25 12:25 Procedure Start 02/17/25 12:37 Procedure End 02/17/25 12:43 Anesthesia End 02/17/25 12:49 Out of Room 02/17/25 12:49 Into Recovery 02/17/25 12:51 Procedure Start Time: 12:37 Procedure Stop Time: 12:43 Select all DRAINS/GRAFTS/IMPLANTS that apply: None Estimated Blood Loss: 30cc Specimen collected: Yes Description of specimen(s) removed: endometrial curetting's/products of conception Description of surgery: Patient was taken to the operating room and placed under MAC local anesthesia. She was prepped and draped in the normal sterile fashion the dorsal lithotomy position. Bladder was drained of clear urine and anterior lip of the cervix was grasped and the uterus sounded to 10cm. Cervix was progressively dilated to allow passage of a size 8 suction curette. Progressive passes were made removing the retained products of conception without complication. Sharp curettage confirmed complete removal of the retained products. All instruments were removed from the vagina and excellent hemostasis was noted and the patient was taken to recovery in stable condition. IM methergine was given to help contract the uterus. Surgical Findings: moderate amount of products of conception removed. Complications Complications: No Admit VTE Documentation VTE Present on Admission: No VTE Mechan Device Prophylaxis: SCD's VTE Pharm Prophylaxis ordered?: No
--- NOTE | 2025-02-17 13:33 | POSTOPAN2_ITS ---
Anesthesia Postop Eval I Sum Postop Eval Completion status Anesthesia document: Postop Eval 1 completed: Yes Anesthesia Postop Eval I Summary Anesthesia Postop Eval I Summary: Anesthesia Postop Eval I: Assessment Summary Airway patent Yes 02/17/25 12:55 PUMPER BREWERY.MDOT Spontaneous unlabored Yes 02/17/25 12:55 PUMPER BREWERY.MDOT respirations Mental status Awake,Calm 02/17/25 12:55 PUMPER BREWERY.MDOT nausea No 02/17/25 12:55 PUMPER BREWERY.MDOT Vomiting No 02/17/25 12:55 PUMPER BREWERY.MDOT Anesthesia Postop Eval I: Fluid Summary Crystalloid volume administer 800 02/17/25 12:55 PUMPER BREWERY.MDOT (ml) Colloids volume administered ( ml) Blood Product volume administered (ml) Total IV fluid infused 800 02/17/25 12:55 PUMPER BREWERY.MDOT Anesthesia Postop Eval I: Summary Notes Anesthesia Complication No 02/17/25 12:55 PUMPER BREWERY.MDOT Anesthesia Complication Comment: Post-operative progress note Anesthesia: Postop Eval II Evaluation Mental status: Awake Pain Level: 0 nausea: No Vomiting: No Complications Anesthesia Complication: No
--- NOTE | 2025-02-17 13:33 | PCM.POSTANE2 ---
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.MDOT Spontaneous unlabored Yes 02/17/25 12:55 HISTOTECHNOLOGIST SUPERVISOR.MDOT respirations Mental status Awake,Calm 02/17/25 12:55 HISTOTECHNOLOGIST SUPERVISOR.MDOT nausea No 02/17/25 12:55 HISTOTECHNOLOGIST SUPERVISOR.MDOT Vomiting No 02/17/25 12:55 HISTOTECHNOLOGIST SUPERVISOR.MDOT Anesthesia Postop Eval I: Fluid Summary Crystalloid volume administer 800 02/17/25 12:55 HISTOTECHNOLOGIST SUPERVISOR.MDOT (ml) Colloids volume administered ( ml) Blood Product volume administered (ml) Total IV fluid infused 800 02/17/25 12:55 HISTOTECHNOLOGIST SUPERVISOR.MDOT Anesthesia Postop Eval I: Summary Notes Anesthesia Complication No 02/17/25 12:55 HISTOTECHNOLOGIST SUPERVISOR.MDOT Anesthesia Complication Comment: Post-operative progress note Anesthesia: Postop Eval II Evaluation Mental status: Awake Pain Level: 0 nausea: No Vomiting: No Complications Anesthesia Complication: No
[2025-03-03 08:12] LABS: Pathology Specimen OB SEE PATHOLOGY REPORT
== END 2025-02-17 13:54 | disposition home or self-care (01) ==
LOC: SDC 10:44 → AC 10:46
PROVIDERS: PCP Physician Assistant; Referring Provider Obstetrics & Gynecology; Visit Provider Obstetrics & Gynecology
PROC: (CPT 59820; principal; 2025-02-17 12:00)
DX: O02.1 Missed abortion (principal); F32.A Depression, unspecified; F41.9 Anxiety disorder, unspecified; Z79.899 Other long term (current) drug therapy
CPT/HCPCS: 59820; 85027; 86850; 86900; 86901; 88305; J2405

== ENCOUNTER → 2025-07-11 | Outpatient (CLI) | payer OTHER, SELFPAY ==
[2025-07-12 21:07] LABS: Chlamydia By Nucleic Acid AMP Negative (Negative); Gonococcus By Nucleic Acid AMP Negative (Negative)
== END | disposition home or self-care (01) ==
LOC: LABSPEC 11:03
PROVIDERS: PCP Physician Assistant; Visit Provider Advanced Practice Midwife
DX: O09.90 Supervision of high risk pregnancy, unspecified, unspecified trimester (principal); Z3A.00 Weeks of gestation of pregnancy not specified
CPT/HCPCS: 87086; 87491; 87591

== ENCOUNTER → 2025-08-09 | Outpatient (CLI) | payer OTHER, SELFPAY ==
[2025-08-09 16:26] LABS: Hematocrit 39.8 % (37-47); Hemoglobin 13.3 g/dL (12.0-15.0); Immature Granulocytes Count 0.020 X10^3/uL (0.0-0.0); Mean Corp Hgb Conc 33.4 g/dL (32-36); Mean Corpuscular Volume 92.3 fL (81-99); Mean Platelet Vol. 9.3 fl (6.2-12.0); NRBC Flagged by Analyzer 0 % (0-5); Platelet Count 327 K/mm3 (150-450); RBC Distribution Width CV 13.0 % (11.6-14.6); RBC Distribution Width SD 43.8 fl (35.1-43.9); Red Blood Count 4.31 M/mm3 (4.2-5.4); White Blood Count 6.9 K/mm3 (4.4-11.0)
[2025-08-09 17:27] LABS: HIV Nonreactive (Nonreactive); Hepatitis B Surface Antigen Nonreactive (Nonreactive); Hepatitis C Antibody Nonreactive (Nonreactive); Syphilis Antibodies Nonreactive (Nonreactive)
== END | disposition home or self-care (01) ==
PROVIDERS: Advanced Practice Midwife; PCP Physician Assistant; Visit Provider Obstetrics & Gynecology
DX: O99.210 Obesity complicating pregnancy, unspecified trimester (principal); Z3A.00 Weeks of gestation of pregnancy not specified
CPT/HCPCS: 36415; 83036; 85025; 86703; 86762; 86780; 86803; 86850; 86900; 86901; 87340